=== PATIENT | male | born 1970 | race Caucasian/White ===

== ENCOUNTER 2017-08-07 11:17 | Inpatient (IN) | payer OTHER ==
[2017-08-25 13:04] VITALS: BMI 32.2
[2017-08-28 14:17] LABS: URINE APPEARANCE CLEAR; URINE BILIRUBIN NEGATIVE (<2.0 mg/dL); URINE COLOR LTYELLOW; URINE GLUCOSE (UA) NEGATIVE (NEGATIVE); URINE KETONE NEGATIVE (NEGATIVE); URINE LEUK ESTERASE NEGATIVE (NEGATIVE); URINE NITRITE NEGATIVE (NEGATIVE); URINE PROTEIN NEGATIVE (NEGATIVE); URINE UROBILINOGEN NEGATIVE mg/dL (0.2-1.0)
[2017-08-28 14:42] LABS: URINE BACTERIA RARE /hpf (NONE SEEN); URINE MUCUS RARE
[2017-08-28] MEDS ORDERED: HEPARIN NA (PORCINE) 5,000 UNITS/ML 1ML VIAL ONE (16:23)
[2017-08-28] MEDS ORDERED: THROMBIN (BOVINE) 5,000 UNIT VIAL TP ONE ×2 (16:24→20:20)
[2017-08-28] MEDS ORDERED: MIDAZOLAM HCL 2 MG/2 ML SINGLE DOSE VIAL ONE (19:04)
[2017-08-28] MEDS ORDERED: LIDOCAINE HCL/PF 2% SDV 5ML VIAL ONE (19:20)
[2017-08-28] MEDS ORDERED: fentaNYL CITRATE 250 MCG/5 ML VIAL ONE (19:20)
[2017-08-28] MEDS ORDERED: PROPOFOL 20 ML ONE ×15 (19:20→22:11)
[2017-08-28] MEDS ORDERED: DEXAMETHASONE SOD PHOSPHATE 4 MG/1 ML VIAL ONE ×2 (19:20→22:59)
[2017-08-28] MEDS ORDERED: VANCOMYCIN 1,000 MG VIAL (RESTRICTED TO ID ONLY) ONE (19:22)
[2017-08-28] MEDS ORDERED: ceFAZolin SODIUM 1 GM VIAL ONE (19:22)
[2017-08-28] MEDS ORDERED: ceFAZolin SODIUM 1 GM VIAL IVPB ONE (19:30)
[2017-08-28] MEDS ORDERED: VANCOMYCIN 1,000 MG VIAL (RESTRICTED TO ID ONLY) IVPB ONE (19:41)
[2017-08-28] MEDS ORDERED: TRANEXAMIC ACID 1000 MG/10 ML VIAL ONE ×2 (19:41→21:11)
[2017-08-28] MEDS ORDERED: ROCURONIUM BROMIDE 50 MG/5 ML VIAL ONE (20:06)
[2017-08-28] MEDS ORDERED: GELATIN, ABSORBABLE 100 EACH SPONGE TP ONE (20:20)
[2017-08-28] MEDS ORDERED: HEPARIN NA (PORCINE) 5,000 UNITS/ML 1ML VIAL SQ ONE (20:47)
--- NOTE | 2017-08-28 23:12 | OP ---
Operative Note - Note: Operative Date: 08/28/17 Pre-Operative Diagnosis: 1. Recess spinal stenosis. 2. Lumbar spondylolysis. 3. Spina bifida occulta Operation: 1. L3-S1 laminectomies. 2. L5 Hinson laminectomy. 3. L3-4, L4-5 PLIF. 4. L3-S1 PISF. 5. Bone autograft. 6. Bone allograft Post-Operative Diagnosis: Same as Pre-op Surgeon: Lenny Park Liability Analyst: Anthony Park Anesthesiologist/DETASSELING CREW SUPERVISOR: Edwin Christensen Anesthesia: General Specimens Removed: L3-4, L4-5 disk Estimated Blood Loss (mls): 1,300 Blood Volume Replaced (mls): 625 (Cell Saver) Fluid Volume Replaced (mls): 3,200 (Crystalloid) Operative Report Dictated: Yes
--- NOTE | 2017-08-28 23:13 | PN ---
Progress Note (short form) - Note Progress Note: 47M s/p L3-S1 laminectomies, L5 Hinson laminectomy, L3-4, L4-5 PLIF, L3-S1 PISF POD #0. -Admit to ICU post-op. -Pain control: per anaesthesia team. -q4h B/L LE NV checks. -DVT PPx: - Mechanical only: ANGELIQUE's, SCD's. -Incentive spirometry. -PT/OT/Rehab, OOB. -WBAT B/L LE. -Post-op antibiotics x 2 doses. -NPO until flatus. -d/c Machado catheter when ambulating. -Care per medical hospitalist team. -Discharge planning. -Will follow. Lenny Park MD (Orthopaedic Surgery).
[2017-08-28] MEDS ORDERED: ONDANSETRON 4 MG/2 ML VIAL IVPUSH PRN (23:15)
[2017-08-28] MEDS ORDERED: diazePAM CARPU-JECT 10 MG/2 ML DISP.SYRIN IVPUSH PRN (23:15)
[2017-08-28] MEDS ORDERED: PROMETHAZINE HCL 25 MG/1 ML VIAL IVPB PRN (23:37)
[2017-08-28] MEDS ORDERED: DEXAMETHASONE SOD PHOSPHATE 4 MG/1 ML VIAL IVPUSH ONE (23:45)
[2017-08-28] MEDS ORDERED: HYDROmorphone *PCA* 10MG/50ML DISP.SYRIN PCA SCH (23:45)
[2017-08-28] MEDS ORDERED: ACETAMINOPHEN INJECTION 100 ML IVPB ONE (23:54)
[2017-08-28] MEDS: ACETAMINOPHEN 1000 MG/100 ML VIAL (NON FORMULARY) IVPB SCH (23:55)
[2017-08-29] MEDS: LACTATED RINGERS SOLUTION 1,000 ML IV SCH ×4 (01:00→18:05)
[2017-08-29] MEDS ORDERED: morphine SULFATE 4 MG/ML VIAL ONE (02:40)
[2017-08-29] MEDS: ceFAZolin 2 GRAM PREMIX BAG IVPB SCH ×2 (02:41→10:38)
[2017-08-29] MEDS: KETOROLAC TROMETHAMINE 30 MG/1 ML VIAL IVPB SCH ×3 (02:48→18:00)
[2017-08-29] MEDS: morphine SULFATE 4 MG/ML VIAL IVPUSH PRN ×3 (02:49→21:09)
--- NOTE | 2017-08-29 03:27 | OP ---
DATE OF OPERATION: 08/28/2017 SURGEON: Lenny Park MD SPRING WINDER: Anthony Park MD PREOPERATIVE DIAGNOSIS: Recent spinal stenosis of the lumbar spine L3, L4, L5, S1 with segmental instability. POSTOPERATIVE DIAGNOSIS: Spondylolysis, spina bifida occulta, spinal stenosis L3, L4, L5, S1 and associated segmental instability. ANESTHESIA: General. ANTIBIOTICS: Given 2 g of Kefzol and 1 g of vancomycin. Tranexamic acid provided x2 doses. OPERATION PERFORMED: 1. Hinson laminectomy of L3, L4, L5. 2. Posterior lumbar antibody fusion L3-L4, L4-L5 (TETRAfuse). 3. Pedicle screw instrumentation L3, L4, L5, S1. 4. Posterolateral arthrodesis L3, L4, L5, S1. 5. Malone-Tolliver osteotomy L3. 6. Bone marrow aspirate concentrate with autologous bone graft. 7. Use of biplane fluoroscopy and intraoperative neural monitoring. 8. Complex wound closure 25 cm. INDICATIONS: Patient had failed all conservative treatment for initial left- sided L5-S1 radiculopathy, which converted to intractable segmental instability and patterned low backache with all conservative treatment having failed. OPERATION DETAILS: The patient was correctly identified, brought to the operating room. Lumbar spine was prepped and window draped with routine betadine scrub solution, wiped off with alcohol. DuraPrep applied. Imaging was available for intraoperative evaluation. Timeout was called. Midline incision utilized after evaluation of the skin incision with the lateral fluoroscopic x-ray. Dissection was taken to the tip of the spinous processes of L2 right down to the spinous processes of S1. A subperiosteal dissection was performed, stripping the soft tissues off of the spinous processes of the lamina out to the tip of the transverse processes of L3, L4, L5, S1. The ala of the sacrum was clearly visualized and stripped of all soft tissue. At that point, verification of levels was once again performed with lateral fluoroscopic x-ray. It was then clearly noted the marked looseness of L5 and there was a spina bifida occulta in situ. This was a classical spondylolysis with spina bifida occulta and entrapment of the L4, L5, S1 nerve roots in this massive fibrocartilaginous material in the spondylolysis site. From the right-hand side , the discs of L3-L4 and L4-L5, which as per MRI revealed Modic level 4 changes at each level with disc degeneration. Each disc was resected using an annulotomy being performed on the annulus. It must be noted the dura was retracted from right to left. All epidural veins were dealt with bipolar Bovie set at 15 milliamps. The edgar were inserted and the shaving was to a size 9 at each disc, being treated exactly the same way. Serrated curettes verified all soft tissue of the end plates at each disc was packed with autologous bone graft that was harvested from the posterior elements and milled in a [employer] mill, packed into the antibody space and then followed with a TETRAfuse size 10, 5-degree lordotic cage. These measured 10 x 22 mm cages. Each cage was packed with bone graft. Verification of the cage on x-ray revealed anterior of each cage as planned. This restored the lumbar lordosis. The pedicles of L3, L4, and S1 were identified. We also identified L5, but it was impossible to place an L5 screw because of the kissing nature of the L4 and S1 screws due to the spondylolysis in this situation. Each pedicle was drilled with a 4.5 drill bit and palpated with a ball tipped feeler. Screws were 40 x 6.5. Each screw was tested with intraoperative neuromonitoring and found to be completely safe. Verification of screw seating was made with lateral fluoroscopic x-ray performed. The rods were contoured to the screw heads, fixed with appropriate caps, torque device locking the screws into the emil situation. At that point, the muscles which were dissected off of the transverse process were gently retracted and the interspinous space was packed with a combination of autologous bone and expanded with allograft bone, mixed in CD34 cells, which was bone marrow aspirate concentrate cells harvested from the left posterior ilium by a Jamshidi needle; 120 mL of marrow removed. Only 3-5 mL of marrow concentrate received. This was packed with the graft. A small, tiny, unusual defect in the dura encountered. I was not sure what this was from. It could have been from a retractor, but the leakage of CSF was minimal at the time that we noted it. Then, we prepared to repair this, but it must be clearly noted that the dura appeared to be friable. Suturing the dura would have caused a problem of holes where the suture sites were placed, which could have become more problematic than the actual problem. Fibrin glue with Surgicel was laid on top of the dura. Prior to doing this, the dura was tested on 2 separate occasions with sustained 40 mmHg pressure applied by the Valsalva maneuver by the anesthesia team, raising intrathoracic pressure appropriately. This was sustained. No leakage was encountered. One CrossLink was applied to the construct. I will comment no complications. The operation went extremely well excepting for. Blood loss: 1300 mL of blood were lost. The patient received 625 CellSaver and was given crystalloid fluid as well in the form of 3200 mL. The wounds were closed as follows: Muscle 1 Vicryl, fascia 1 Vicryl, subcutaneous 1 and 2-0 Vicryl, skin jaymie. No drains utilized. This completed a complex wound closure of 25 cm. OVERALL COMMENT: The patient's operation went well. No complications. MD PONCHO Centeno/[id number] MTDD
[2017-08-29 06:12] LABS: HEMATOCRIT 43.7 % (35.4-49); HEMOGLOBIN 14.9 GM/dL (11.7-16.9); MCH 30.7 pg (25.7-33.7); MCHC 34.1 g/dl (32.0-35.9); MEAN CELL VOLUME 90.1 fl (80-96); PLATELET COUNT 379 K/MM3 (134-434); RBC 4.85 M/mm3 (4.00-5.60); RDW 14.2 % (11.9-15.9); WHITE BLOOD COUNT 18.6 K/mm3 (4.0-10.0)
[2017-08-29 06:36] LABS: ANION GAP 6 (8-16); BLOOD UREA NITROGEN 11 mg/dL (7-18); CALCIUM 8.3 mg/dL (8.5-10.1); CHLORIDE 105 mmol/L (98-107); CO2 27 mmol/L (21-32); CREATININE 0.7 mg/dL (0.7-1.3); GLUCOSE,RANDOM 117 mg/dL (74-106); POTASSIUM 4.1 mmol/L (3.5-5.1); SODIUM 138 mmol/L (136-145)
[2017-08-29] MEDS: ACETAMINOPHEN 1000 MG/100 ML VIAL (NON FORMULARY) IVPB SCH ×2 (07:44→14:38)
--- NOTE | 2017-08-29 08:35 | PN ---
Progress Note, Physician Chief Complaint: Pt has pain controlled with addition of tylenol and toradol. No GA complaints. - Current Medication List Current Medications: Active Medications Acetaminophen (Ofirmev Injection -) 1,000 mg IVPB Q8H [facility] Stop: 08/29/17 15:16 Last Admin: 08/29/17 07:44 Dose: 1,000 mg Cefazolin Sodium/Dextrose (Ancef 2 Gm Premixed Ivpb -) 2 gm IVPB Q8H [facility] Stop: 08/29/17 11:01 Last Admin: 08/29/17 02:41 Dose: 2 gm Diazepam (Valium Injection -) 5 mg IVPUSH Q6H PRN PRN Reason: MUSCLE SPASMS Hydromorphone HCl (Dilaudid Tearoom Host -) 0 mg FURNITURE MAKER FURNITURE MAKER [facility]; Protocol Stop: 09/04/17 23:37 Last Admin: 08/28/17 23:45 Dose: 10 mg Lactated Ringer's (Lactated Ringers Solution) 1,000 mls @ 125 mls/hr IV ASDIR [facility] Last Admin: 08/29/17 04:09 Dose: Not Given Ketorolac Tromethamine (Toradol Injection -) 30 mg IVPB Q8H [facility] Stop: 08/30/17 02:46 Last Admin: 08/29/17 02:48 Dose: 30 mg Morphine Sulfate (Morphine Sulfate) 4 mg IVPUSH Q3H PRN PRN Reason: PAIN LEVEL 7 - 10 Last Admin: 08/29/17 05:37 Dose: 4 mg Non-Formulary Medication (Naloxegol Oxalate [Movantik]) 25 mg PO DAILY [facility] Ondansetron HCl (Zofran Injection) 4 mg IVPUSH Q6H PRN PRN Reason: NAUSEA AND/OR VOMITING Promethazine HCl (Phenergan Injection -) 12.5 mg IVPB Q6H PRN PRN Reason: NAUSEA AND/OR VOMITING - Objective Vital Signs: Vital Signs Temperature 98.4 F 08/29/17 06:43 Pulse Rate 60 08/29/17 08:04 Respiratory Rate 21 08/29/17 08:04 Blood Pressure 159/88 08/29/17 08:04 O2 Sat by Pulse Oximetry (%) 100 08/29/17 02:30 Constitutional: Yes: Well Nourished, No Distress, Calm Neurological: Yes: WNL, Alert, Oriented Labs: CBC, BMP 06/12/18 06:00 08/29/17 06:00 Assessment/Plan POD#1 s/p L3-S1 decompression, instrumentation with fusion under GA. Dilaudid FURNITURE MAKER for pain control. Doing well with current regimen, Cont FURNITURE MAKER
[2017-08-29] MEDS ORDERED: BISACODYL 10 MG SUPP.RECT PR PRN (08:41)
--- NOTE | 2017-08-29 08:42 | PN ---
Physical Exam: SUBJECTIVE: Patient seen and examined at bedside. Walked with PT this morning. Complaining of 10/10 pain after PT. OBJECTIVE: Vital Signs Period Temp Pulse Resp BP Sys/Naylor Pulse Ox Last 24 Hr 98 F-98.9 F 59-76 15-26 140-159/68-99 98-100 GENERAL: The patient is awake, alert, and fully oriented, in no acute distress. LUNGS: Mild end expiratory wheezing HEART: Regular rate and rhythm, S1, S2 ABDOMEN: Soft, nontender, nondistended EXTREMITIES: 2+ pulses, warm, well-perfused, no edema. NEUROLOGICAL: Cranial nerves II through XII grossly intact. Normal speech Laboratory Results - last 24 hr 08/28/17 08/28/17 08/28/17 14:01 14:01 14:40 WBC RBC Hgb Hct MCV MCH MCHC RDW Plt Count MPV Sodium Potassium Chloride Carbon Dioxide Anion Gap BUN Creatinine Random Glucose Calcium Urine Color Ltyellow Urine Appearance Clear Urine pH 6.0 Ur Specific [place] 1.005 Urine Protein Negative Urine Glucose (UA) Negative Urine Ketones Negative Urine Blood 1+ H Urine Nitrite Negative Urine Bilirubin Negative Urine Urobilinogen Negative Ur Leukocyte Esterase Negative Urine WBC (Auto) <1 Urine RBC (Auto) 1 Urine Bacteria Rare Urine Mucus Rare Blood Type O POSITIVE O POSITIVE Antibody Screen Negative 08/29/17 08/29/17 06:00 06:00 WBC 18.6 H RBC 4.85 Hgb 14.9 Hct 43.7 MCV 90.1 MCH 30.7 MCHC 34.1 RDW 14.2 Plt Count 379 MPV 7.0 L Sodium 138 Potassium 4.1 Chloride 105 Carbon Dioxide 27 Anion Gap 6 L BUN 11 Creatinine 0.7 Random Glucose 117 H Calcium 8.3 L Urine Color Urine Appearance Urine pH Ur Specific [place] Urine Protein Urine Glucose (UA) Urine Ketones Urine Blood Urine Nitrite Urine Bilirubin Urine Urobilinogen Ur Leukocyte Esterase Urine WBC (Auto) Urine RBC (Auto) Urine Bacteria Urine Mucus Blood Type Antibody Screen Active Medications Generic Name Dose Route Start Last Admin Trade Name Freq PRN Reason Stop Dose Admin Acetaminophen 1,000 mg 08/28/17 23:15 08/29/17 07:44 Ofirmev Injection - IVPB 08/29/17 15:16 1,000 mg Q8H TIM Administration Cefazolin Sodium/Dextrose 2 gm 08/29/17 03:00 08/29/17 02:41 Ancef 2 Gm Premixed Ivpb - IVPB 08/29/17 11:01 2 gm Q8H TIM Administration Diazepam 5 mg 08/28/17 23:15 Valium Injection - IVPUSH Q6H PRN MUSCLE SPASMS Docusate Sodium 100 mg 08/29/17 14:00 Colace - PO TID [facility] Hydromorphone HCl 0 mg 08/28/17 23:45 08/28/17 23:45 Dilaudid Bone Process Operator - PROOF OPERATOR 09/04/17 23:37 10 mg PROOF OPERATOR TIM Administration Protocol Lactated Ringer's 1,000 mls @ 125 mls/hr 08/28/17 23:15 08/29/17 04:09 Lactated Ringers Solution IV Not Given ASDIR [facility] Ketorolac Tromethamine 30 mg 08/29/17 02:45 08/29/17 02:48 Toradol Injection - IVPB 08/30/17 02:46 30 mg Q8H TIM Administration Morphine Sulfate 4 mg 08/29/17 02:44 08/29/17 05:37 Morphine Sulfate IVPUSH 4 mg Q3H PRN Administration PAIN LEVEL 7 - 10 Non-Formulary Medication 25 mg 08/29/17 10:00 Naloxegol Oxalate [Movantik] PO DAILY [facility] Ondansetron HCl 4 mg 08/28/17 23:15 Zofran Injection IVPUSH Q6H PRN NAUSEA AND/OR VOMITING Polyethylene Glycol 17 gm 08/29/17 10:00 Miralax (For Daily Use) - PO BID [facility] Promethazine HCl 12.5 mg 08/28/17 23:37 Phenergan Injection - IVPB Q6H PRN NAUSEA AND/OR VOMITING ASSESSMENT/PLAN: 47 year-old male with a PMH significant for COPD, active smoker, and recess spinal stenosis, lumbar spondylolysis, spina bifida occulta. Recess spinal stenosis, lumbar spondylolysis, spina bifida occulta s/p L3-S1 laminectomies, L5 Hinson laminectomy, L3-L4, L4-L5 PLIF, L3-S1 PISF, bone autograft, bone allograft 08/28/17 --POD #1 --perioperative antibiotics per surgery --pain management per anesthesia --bowel regimen started --IS --d/c jones COPD --was told as part of pre-op workup he has COPD --mild end expiratory wheeze --duonebs TID FEN Fluids: LR @ 125mL/hr Electrolytes: replete as indicated Nutrition: NPO until flatus DVT prophylaxis: mechanical only; SCDs, TEDs Dispo: continues to require ICU level care. Full code. Visit type - Emergency Visit Emergency Visit: Yes ED Registration Date: 08/28/17 Care time: The patient presented to the Emergency Department on the above date and was hospitalized for further evaluation of their emergent condition. - New Patient This patient is new to me today: Yes Date on this admission: 08/29/17 - Critical Care Critical Care patient: No Total Critical Care Time (in minutes): 35 Critical Care Statement: The care of this patient involved high complexity decision making to prevent further life threatening deterioration of the patient 's condition and/or to evaluate & treat vital organ system(s) failure or risk of failure.
[2017-08-29] MEDS ORDERED: BISACODYL 10 MG SUPP.RECT RC PRN (09:04)
[2017-08-29] MEDS ORDERED: POLYETHYLENE GLYCOL 3350 119 GM BTL PO SCH (10:00)
--- NOTE | 2017-08-29 11:43 | PN ---
Teaching Attending Note Name of Resident: Larry Nicholson ATTENDING PHYSICIAN STATEMENT I saw and evaluated the patient. I reviewed the resident's note and discussed the case with the resident. I agree with the resident's findings and plan as documented. SUBJECTIVE: Pt seen and examined in the ICU. Briefly, 47yo male with h/o spinal stenosis who underwent elective L3-S1 laminectomies/L3-L4, L4-L5 PLIF/L3-S1 PISF. EBL 1300mL. 625mL cell saver returned, received 3200mL crystalloid. Seen post op day 1, hungry. States pain controlled. No nausea. Denies shortness of breath or chest pain. Wants to eat. OBJECTIVE: Vital Signs Period Temp Pulse Resp BP Sys/Naylor Pulse Ox Last 24 Hr 98 F-98.9 F 58-76 15-26 113-159/68-99 97-100 Intake & Output 08/26/17 08/27/17 08/28/17 08/29/17 23:59 23:59 23:59 23:59 Intake Total 4425 1000 Output Total 600 1500 Balance 3825 -500 Gen: NAD at rest but easily agitated Heart: RRR Lung: decreased breath sounds at the bases Abd: soft, nontender Ext: no edema CBC, BMP 08/29/17 06:00 08/29/17 06:00 Active Medications Acetaminophen (Ofirmev Injection -) 1,000 mg IVPB Q8H [facility] Stop: 08/29/17 15:16 Last Admin: 08/29/17 07:44 Dose: 1,000 mg Bisacodyl (Dulcolax Suppository -) 10 mg RC PRN PRN PRN Reason: CONSTIPATION Diazepam (Valium Injection -) 5 mg IVPUSH Q6H PRN PRN Reason: MUSCLE SPASMS Hydromorphone HCl (Dilaudid Manager Data Warehousing -) 0 mg CARDIAC EXERCISE PHYSIOLOGIST CARDIAC EXERCISE PHYSIOLOGIST TIM; Protocol Stop: 09/04/17 23:37 Last Admin: 08/28/17 23:45 Dose: 10 mg Lactated Ringer's (Lactated Ringers Solution) 1,000 mls @ 125 mls/hr IV ASDIR TIM Last Admin: 08/29/17 04:09 Dose: Not Given Ketorolac Tromethamine (Toradol Injection -) 30 mg IVPB Q8H [facility] Stop: 08/30/17 02:46 Last Admin: 08/29/17 10:23 Dose: 30 mg Morphine Sulfate (Morphine Sulfate) 4 mg IVPUSH Q3H PRN PRN Reason: PAIN LEVEL 7 - 10 Last Admin: 08/29/17 05:37 Dose: 4 mg Non-Formulary Medication (Naloxegol Oxalate [Movantik]) 25 mg PO DAILY TIM Ondansetron HCl (Zofran Injection) 4 mg IVPUSH Q6H PRN PRN Reason: NAUSEA AND/OR VOMITING Promethazine HCl (Phenergan Injection -) 12.5 mg IVPB Q6H PRN PRN Reason: NAUSEA AND/OR VOMITING ASSESSMENT AND PLAN: Spinal Stenosis Lumbar Spondylolysis s/p L3-S1 laminectomies/L3-L4, L4-L5 PLIF/L3-S1 PISF - pain control - incentive spirometry - IVF - d/c jones when out of bed - PO/activity/DVT prophylaxis/disposition per surgery
--- NOTE | 2017-08-29 12:05 | CONSULT ---
Consultation: CONSULT REQUEST: We have been asked to medically evaluate this patient for ( specify). HISTORY OF PRESENT ILLNESS: Patient is a 47 yo M with no PMHx, POD #1 for elective L3-S1 laminectomies/L3-L4, L4-L5 PLIF/L3-S1 PISF. Patient offers no complaints. Says the pain is controlled with his medications. Denies sob, dizziness, chest pain, cough, dysuria. Has not passed flatus or had a bowel movement. Patient wants to eat, complaining about hunger. REVIEW OF SYSTEMS: CONSTITUTIONAL: Absent: fever, chills, diaphoresis, generalized weakness, malaise, loss of appetite, weight change HEENT: Absent: rhinorrhea, nasal congestion, throat pain, throat swelling, difficulty swallowing, mouth swelling, ear pain, eye pain, visual changes CARDIOVASCULAR: Absent: chest pain, syncope, palpitations, irregular heart rate, lightheadedness , peripheral edema RESPIRATORY: Absent: cough, shortness of breath, dyspnea with exertion, orthopnea, wheezing, stridor, hemoptysis GASTROINTESTINAL: Absent: abdominal pain, abdominal distension, nausea, vomiting, diarrhea, constipation, melena, hematochezia GENITOURINARY: Absent: dysuria, frequency, urgency, hesitancy, hematuria, flank pain, genital pain MUSCULOSKELETAL: Absent: myalgia, arthralgia, joint swelling, back pain, neck pain SKIN: Absent: rash, itching, pallor HEMATOLOGIC/IMMUNOLOGIC: Absent: easy bleeding, easy bruising, lymphadenopathy, frequent infections ENDOCRINE: Absent: unexplained weight gain, unexplained weight loss, heat intolerance, cold intolerance NEUROLOGIC: Absent: headache, focal weakness or paresthesias, dizziness, unsteady gait, seizure, mental status changes, bladder or bowel incontinence PSYCHIATRIC: Absent: anxiety, depression, suicidal or homicidal ideation, hallucinations. PHYSICAL EXAMINATION Vital Signs - 24 hr 08/28/17 08/28/17 08/28/17 14:38 14:53 23:25 Temperature 98.7 F 98.2 F Pulse Rate 74 76 Respiratory 18 18 Rate Blood Pressure 143/84 140/72 O2 Sat by Pulse 98 98 Oximetry (%) 08/28/17 08/28/17 08/29/17 23:30 23:45 00:00 Temperature Pulse Rate 60 65 63 Respiratory 20 26 H 21 Rate Blood Pressure 142/70 141/77 147/80 O2 Sat by Pulse 100 100 100 Oximetry (%) 08/29/17 08/29/17 08/29/17 00:15 00:30 00:45 Temperature Pulse Rate 65 75 67 Respiratory 15 17 25 H Rate Blood Pressure 150/68 158/69 147/80 O2 Sat by Pulse 100 100 100 Oximetry (%) 08/29/17 08/29/17 08/29/17 01:00 01:15 01:30 Temperature 98.2 F Pulse Rate 71 68 68 Respiratory 20 18 18 Rate Blood Pressure 148/80 150/69 148/88 O2 Sat by Pulse 100 100 Oximetry (%) 08/29/17 08/29/17 08/29/17 01:53 01:58 02:00 Temperature 98 F 98.7 F Pulse Rate 61 60 Respiratory 19 19 20 Rate Blood Pressure 159/99 140/70 O2 Sat by Pulse 100 98 Oximetry (%) 08/29/17 08/29/17 08/29/17 02:15 02:30 02:45 Temperature 98.9 F Pulse Rate 64 74 64 Respiratory 20 20 20 Rate Blood Pressure 140/70 150/80 140/70 O2 Sat by Pulse 100 Oximetry (%) 08/29/17 08/29/17 08/29/17 03:15 03:45 04:15 Temperature Pulse Rate 64 64 64 Respiratory 20 20 20 Rate Blood Pressure 150/70 150/70 149/78 O2 Sat by Pulse Oximetry (%) 08/29/17 08/29/17 08/29/17 04:45 05:15 05:45 Temperature Pulse Rate 64 60 60 Respiratory 20 20 20 Rate Blood Pressure 149/78 150/70 150/70 O2 Sat by Pulse Oximetry (%) 08/29/17 08/29/17 08/29/17 06:15 06:43 06:45 Temperature 98.4 F Pulse Rate 60 60 60 Respiratory 20 20 20 Rate Blood Pressure 150/70 152/86 150/70 O2 Sat by Pulse Oximetry (%) 08/29/17 08/29/17 08/29/17 07:15 08:04 09:00 Temperature Pulse Rate 59 L 60 Respiratory 20 19 Rate Blood Pressure 113/99 159/88 O2 Sat by Pulse 97 Oximetry (%) 08/29/17 08/29/17 10:00 10:15 Temperature 98.4 F Pulse Rate 58 L 64 Respiratory 20 20 Rate Blood Pressure 158/81 158/81 O2 Sat by Pulse Oximetry (%) GENERAL: in NAD, but easily agitated. comfortable in bed EYES: Pupils equal, round and reactive to light, extraocular movements intact, sclera anicteric, conjunctiva clear. EARS, NOSE, THROAT: oropharynx clear without exudates. Moist mucous membranes. NECK: supple without lymphadenopathy, JVD LUNGS: Breath sounds equal, clear to auscultation bilaterally. No wheezes, and no crackles HEART: Regular rate and rhythm, normal S1 and S2 without murmur, rub or gallop. ABDOMEN: Soft, nontender, not distended, normoactive bowel sounds, MUSCULOSKELETAL: Normal range of motion at all joints. UPPER EXTREMITIES: 2+ pulses, warm, well-perfused. LOWER EXTREMITIES: 2+ pulses, No peripheral edema. NEUROLOGICAL: Cranial nerves II-XII intact. Normal speech. Normal gait. Laboratory Results - last 24 hr 08/28/17 08/28/17 08/28/17 14:01 14:01 14:40 WBC RBC Hgb Hct MCV MCH MCHC RDW Plt Count MPV Sodium Potassium Chloride Carbon Dioxide Anion Gap BUN Creatinine Random Glucose Calcium Urine Color Ltyellow Urine Appearance Clear Urine pH 6.0 Ur Specific [place] 1.005 Urine Protein Negative Urine Glucose (UA) Negative Urine Ketones Negative Urine Blood 1+ H Urine Nitrite Negative Urine Bilirubin Negative Urine Urobilinogen Negative Ur Leukocyte Esterase Negative Urine WBC (Auto) <1 Urine RBC (Auto) 1 Urine Bacteria Rare Urine Mucus Rare Blood Type O POSITIVE O POSITIVE Antibody Screen Negative 08/29/17 08/29/17 06:00 06:00 WBC 18.6 H RBC 4.85 Hgb 14.9 Hct 43.7 MCV 90.1 MCH 30.7 MCHC 34.1 RDW 14.2 Plt Count 379 MPV 7.0 L Sodium 138 Potassium 4.1 Chloride 105 Carbon Dioxide 27 Anion Gap 6 L BUN 11 Creatinine 0.7 Random Glucose 117 H Calcium 8.3 L Urine Color Urine Appearance Urine pH Ur Specific [place] Urine Protein Urine Glucose (UA) Urine Ketones Urine Blood Urine Nitrite Urine Bilirubin Urine Urobilinogen Ur Leukocyte Esterase Urine WBC (Auto) Urine RBC (Auto) Urine Bacteria Urine Mucus Blood Type Antibody Screen Active Medications Generic Name Dose Route Start Last Admin Trade Name Freq PRN Reason Stop Dose Admin Acetaminophen 1,000 mg 08/28/17 23:15 08/29/17 07:44 Ofirmev Injection - IVPB 08/29/17 15:16 1,000 mg Q8H TIM Administration Bisacodyl 10 mg 08/29/17 09:04 Dulcolax Suppository - RC PRN PRN CONSTIPATION Diazepam 5 mg 08/28/17 23:15 Valium Injection - IVPUSH Q6H PRN MUSCLE SPASMS Hydromorphone HCl 0 mg 08/28/17 23:45 08/28/17 23:45 Dilaudid Deputy County Counsel - COMMERCIAL SALES REPRESENTATIVE 09/04/17 23:37 10 mg COMMERCIAL SALES REPRESENTATIVE TIM Administration Protocol Lactated Ringer's 1,000 mls @ 125 mls/hr 08/28/17 23:15 08/29/17 04:09 Lactated Ringers Solution IV Not Given ASDIR [facility] Ketorolac Tromethamine 30 mg 08/29/17 02:45 08/29/17 10:23 Toradol Injection - IVPB 08/30/17 02:46 30 mg Q8H TIM Administration Morphine Sulfate 4 mg 08/29/17 02:44 08/29/17 05:37 Morphine Sulfate IVPUSH 4 mg Q3H PRN Administration PAIN LEVEL 7 - 10 Non-Formulary Medication 25 mg 08/29/17 10:00 Naloxegol Oxalate [Movantik] PO DAILY [facility] Ondansetron HCl 4 mg 08/28/17 23:15 Zofran Injection IVPUSH Q6H PRN NAUSEA AND/OR VOMITING Promethazine HCl 12.5 mg 08/28/17 23:37 Phenergan Injection - IVPB Q6H PRN NAUSEA AND/OR VOMITING ASSESSMENT/PLAN: #s/p L3-S1 laminectomies/L3-L4, L4-L5 PLIF/L3-S1 PISF -Pain control with COMMERCIAL SALES REPRESENTATIVE pump-Dilaudid -incentive spirometry -IV fluids with LR @125 -PT -d/c jones when ambulating -Post-op antibiotics x 2 doses. -NPO until flatus. -d/c Jones catheter when ambulating. #FEN -LR @ 125ml/hour -monitor lytes -NPO #DVT -SCD's Dispo: We will continue to follow the patient. Thank you for this consultative opportunity. Visit type - Emergency Visit Emergency Visit: Yes ED Registration Date: 08/28/17 Care time: The patient presented to the Emergency Department on the above date and was hospitalized for further evaluation of their emergent condition. - New Patient This patient is new to me today: Yes Date on this admission: 08/29/17 - Critical Care Critical Care patient: Yes Total Critical Care Time (in minutes): 40 Critical Care Statement: The care of this patient involved high complexity decision making to prevent further life threatening deterioration of the patient 's condition and/or to evaluate & treat vital organ system(s) failure or risk of failure.
[2017-08-29] MEDS ORDERED: DOCUSATE SODIUM 100 MG CAPSULE (FP) PO SCH (14:00)
[2017-08-29] MEDS ORDERED: NICOTINE POLACRILEX 2 MG GUM BUC PRN (15:07)
[2017-08-29] MEDS: ALBUTEROL SO4 2.5/IPRATROPIUM 0.5 INH SOL 3 ML VIAL.NEB. NEB SCH ×2 (16:00→21:10)
[2017-08-29] MEDS: HYDROmorphone *PCA* 10MG/50ML DISP.SYRIN PCA SCH (18:22)
[2017-08-29] MEDS ORDERED: POLYETHYLENE GLYCOL 3350 119 GM BTL PO PRN (19:52)
[2017-08-30] MEDS: morphine SULFATE 4 MG/ML VIAL IVPUSH PRN ×6 (00:10→21:56)
[2017-08-30] MEDS: KETOROLAC TROMETHAMINE 30 MG/1 ML VIAL IVPB SCH (03:17)
[2017-08-30] MEDS ORDERED: PT OWN MED DRAWER 7, Y5N ONE (03:21)
[2017-08-30 06:12] LABS: HEMATOCRIT 36.7 % (35.4-49); HEMOGLOBIN 12.7 GM/dL (11.7-16.9); MCHC 34.6 g/dl (32.0-35.9); MEAN CELL VOLUME 89.5 fl (80-96); MEAN PLT VOLUME 7.2 fl (7.5-11.1); PLATELET COUNT 323 K/MM3 (134-434); RDW 14.2 % (11.9-15.9); WHITE BLOOD COUNT 13.5 K/mm3 (4.0-10.0)
[2017-08-30 06:45] LABS: ALBUMIN 3.1 g/dl (3.4-5.0); ANION GAP 9 (8-16); BLOOD UREA NITROGEN 8 mg/dL (7-18); CHLORIDE 101 mmol/L (98-107); CO2 28 mmol/L (21-32); CREATININE 0.6 mg/dL (0.7-1.3); GLUCOSE,RANDOM 96 mg/dL (74-106); MAGNESIUM 2.1 mg/dL (1.8-2.4); POTASSIUM 3.7 mmol/L (3.5-5.1); SGOT/AST 81 U/L (15-37); SGPT/ALT 44 U/L (12-78); SODIUM 138 mmol/L (136-145)
[2017-08-30 06:47] LABS: ALK PHOS 55 U/L (45-117); BILIRUBIN,TOTAL 0.7 mg/dL (0.2-1.0)
[2017-08-30] MEDS ORDERED: HYDROmorphone HCL CARPU-JECT 1 MG/1 ML DISP.SYRIN ONE (07:32)
[2017-08-30] MEDS ORDERED: HYDROmorphone HCL CARPU-JECT 1 MG/1 ML DISP.SYRIN IVPUSH ONE (07:32)
--- NOTE | 2017-08-30 07:57 | PN ---
Physical Exam: SUBJECTIVE: Patient seen and examined. Pain is slightly improved from yesterday. Walked with PT today. OBJECTIVE: Vital Signs Period Temp Pulse Resp BP Sys/Naylor Pulse Ox Last 24 Hr 98.1 F-98.9 F 58-93 16-25 96-180/47-91 97-97 GENERAL: The patient is awake, alert, and fully oriented, in no acute distress. LUNGS: Mild end expiratory wheezing HEART: Regular rate and rhythm, S1, S2 ABDOMEN: Soft, nontender, nondistended MUSCULOSKELETAL: surgicel dressing in place, c/d/i; surrounding area no erythema , swelling EXTREMITIES: 2+ pulses, warm, well-perfused, no edema. NEUROLOGICAL: Cranial nerves II through XII grossly intact. Normal speech Laboratory Results - last 24 hr 08/30/17 08/30/17 05:55 05:55 WBC 13.5 H RBC 4.10 Hgb 12.7 D Hct 36.7 D MCV 89.5 MCH 31.0 MCHC 34.6 RDW 14.2 Plt Count 323 MPV 7.2 L Sodium 138 Potassium 3.7 Chloride 101 Carbon Dioxide 28 Anion Gap 9 BUN 8 D Creatinine 0.6 L Creat Clearance w eGFR > 60 Random Glucose 96 Calcium 8.0 L Magnesium 2.1 Total Bilirubin 0.7 AST 81 H ALT 44 Alkaline Phosphatase 55 Total Protein 6.0 L Albumin 3.1 L Active Medications Generic Name Dose Route Start Last Admin Trade Name Freq PRN Reason Stop Dose Admin Albuterol/Ipratropium 1 amp 08/29/17 16:00 08/29/17 21:10 Duoneb - NEB 1 amp RQID TIM Administration Bisacodyl 10 mg 08/29/17 09:04 Dulcolax Suppository - RC PRN PRN CONSTIPATION Diazepam 5 mg 08/28/17 23:15 Valium Injection - IVPUSH Q6H PRN MUSCLE SPASMS Hydromorphone HCl 10 mg 08/29/17 18:14 08/29/17 18:22 Dilaudid Slat Twister - SPECIAL SYSTEMS TECHNICIAN 09/04/17 23:37 10 mg SPECIAL SYSTEMS TECHNICIAN TIM Administration Protocol Lactated Ringer's 1,000 mls @ 75 mls/hr 08/29/17 15:19 08/29/17 18:05 Lactated Ringers Solution IV 75 mls/hr ASDIR TIM Administration Morphine Sulfate 4 mg 08/29/17 02:44 08/30/17 06:25 Morphine Sulfate IVPUSH 4 mg Q3H PRN Administration PAIN LEVEL 7 - 10 Nicotine Polacrilex 2 mg 08/29/17 15:07 Nicorette Gum - BUC Q2H PRN NICOTINE REPLACEMENT RX Non-Formulary Medication 25 mg 08/29/17 10:00 Naloxegol Oxalate [Movantik] PO DAILY TIM Ondansetron HCl 4 mg 08/28/17 23:15 Zofran Injection IVPUSH Q6H PRN NAUSEA AND/OR VOMITING Polyethylene Glycol 17 gm 08/29/17 19:52 08/29/17 21:13 Miralax (For Daily Use) - PO 17 gm Q24H PRN Administration CONSTIPATION Promethazine HCl 12.5 mg 08/28/17 23:37 Phenergan Injection - IVPB Q6H PRN NAUSEA AND/OR VOMITING ASSESSMENT/PLAN: 47 year-old male with a PMH significant for COPD, active smoker, and recess spinal stenosis, lumbar spondylolysis, spina bifida occulta. Recess spinal stenosis, lumbar spondylolysis, spina bifida occulta s/p L3-S1 laminectomies, L5 Hinson laminectomy, L3-L4, L4-L5 PLIF, L3-S1 PISF, bone autograft, bone allograft 08/28/17 --POD #2 --perioperative antibiotics per surgery --pain management per anesthesia --bowel regimen; patient using home Movantik prescription --IS --voiding freely COPD --was told as part of pre-op workup he has COPD --mild end expiratory wheeze --duonebs TID FEN Fluids: LR @ 75mL/hr Electrolytes: replete as indicated Nutrition: NPO until flatus DVT prophylaxis: mechanical only; SCDs, TEDs Dispo: continues to require inpatient care. Patient expressed interest in going to [place], discussed with case management. Full code. Visit type - Emergency Visit Emergency Visit: Yes ED Registration Date: 08/28/17 Care time: The patient presented to the Emergency Department on the above date and was hospitalized for further evaluation of their emergent condition. - New Patient This patient is new to me today: No - Critical Care Critical Care patient: No
[2017-08-30] MEDS: ALBUTEROL SO4 2.5/IPRATROPIUM 0.5 INH SOL 3 ML VIAL.NEB. NEB SCH ×4 (08:10→21:16)
[2017-08-30] MEDS ORDERED: KETOROLAC TROMETHAMINE 30 MG/1 ML VIAL IVPUSH ONE (08:15)
--- NOTE | 2017-08-30 08:28 | PN ---
Physical Exam: SUBJECTIVE: Patient seen and examined. No acute events overnight. Says he is more uncomfortable and in pain compared to yesterday. Has not had a BM, and minimally passing flatus. Afebrile, sat 100% RA OBJECTIVE: Vital Signs Period Temp Pulse Resp BP Sys/Naylor Pulse Ox Last 24 Hr 98.1 F-98.9 F 58-93 16-25 96-180/47-91 97-97 GENERAL: in NAD, but easily agitated. comfortable in bed EYES: Pupils equal, round and reactive to light, extraocular movements intact EARS, NOSE, THROAT: oropharynx clear without exudates. Moist mucous membranes. NECK: supple without lymphadenopathy, JVD LUNGS: Breath sounds equal, clear to auscultation bilaterally. HEART: Regular rate and rhythm, normal S1 and S2 without murmur, rub or gallop. ABDOMEN: Soft, nontender, not distended, normoactive bowel sounds MUSCULOSKELETAL: Normal range of motion at all joints. UPPER EXTREMITIES: 2+ pulses, warm, well-perfused. LOWER EXTREMITIES: 2+ pulses, No peripheral edema. NEUROLOGICAL: Cranial nerves II-XII intact. Normal speech. Laboratory Results - last 24 hr 08/30/17 08/30/17 05:55 05:55 WBC 13.5 H RBC 4.10 Hgb 12.7 D Hct 36.7 D MCV 89.5 MCH 31.0 MCHC 34.6 RDW 14.2 Plt Count 323 MPV 7.2 L Sodium 138 Potassium 3.7 Chloride 101 Carbon Dioxide 28 Anion Gap 9 BUN 8 D Creatinine 0.6 L Creat Clearance w eGFR > 60 Random Glucose 96 Calcium 8.0 L Magnesium 2.1 Total Bilirubin 0.7 AST 81 H ALT 44 Alkaline Phosphatase 55 Total Protein 6.0 L Albumin 3.1 L Active Medications Generic Name Dose Route Start Last Admin Trade Name Freq PRN Reason Stop Dose Admin Albuterol/Ipratropium 1 amp 08/29/17 16:00 08/29/17 21:10 Duoneb - NEB 1 amp RQID TIM Administration Bisacodyl 10 mg 08/29/17 09:04 Dulcolax Suppository - RC PRN PRN CONSTIPATION Diazepam 5 mg 08/28/17 23:15 Valium Injection - IVPUSH Q6H PRN MUSCLE SPASMS Hydromorphone HCl 10 mg 08/29/17 18:14 06/12/18 18:22 Dilaudid Public Address Systems Mechanic - CLIENT CUSTOMER MANAGER 09/04/17 23:37 10 mg CLIENT CUSTOMER MANAGER TIM Administration Protocol Lactated Ringer's 1,000 mls @ 75 mls/hr 08/29/17 15:19 08/29/17 18:05 Lactated Ringers Solution IV 75 mls/hr ASDIR TIM Administration Morphine Sulfate 4 mg 08/29/17 02:44 08/30/17 06:25 Morphine Sulfate IVPUSH 4 mg Q3H PRN Administration PAIN LEVEL 7 - 10 Nicotine Polacrilex 2 mg 08/29/17 15:07 Nicorette Gum - BUC Q2H PRN NICOTINE REPLACEMENT RX Non-Formulary Medication 25 mg 08/29/17 10:00 Naloxegol Oxalate [Movantik] PO DAILY TIM Ondansetron HCl 4 mg 08/28/17 23:15 Zofran Injection IVPUSH Q6H PRN NAUSEA AND/OR VOMITING Polyethylene Glycol 17 gm 08/29/17 19:52 08/29/17 21:13 Miralax (For Daily Use) - PO 17 gm Q24H PRN Administration CONSTIPATION Promethazine HCl 12.5 mg 08/28/17 23:37 Phenergan Injection - IVPB Q6H PRN NAUSEA AND/OR VOMITING ASSESSMENT/PLAN: #s/p L3-S1 laminectomies/L3-L4, L4-L5 PLIF/L3-S1 PISF -POD #2 -Pain control with CLIENT CUSTOMER MANAGER pump-Dilaudid -incentive spirometry -IV fluids with LR @125 -PT -[place]ado d/c -Dulcolax, Miralax for constipation #COPD -was told as part of pre-op workup he has COPD -duonebs TID #FEN -No fluids, patient eating -monitor lytes -Regular diet #DVT -SCD's Transfer to [facility]-surge Visit type - Emergency Visit Emergency Visit: Yes ED Registration Date: 08/28/17 Care time: The patient presented to the Emergency Department on the above date and was hospitalized for further evaluation of their emergent condition. - New Patient This patient is new to me today: No - Critical Care Critical Care patient: Yes Total Critical Care Time (in minutes): 40 Critical Care Statement: The care of this patient involved high complexity decision making to prevent further life threatening deterioration of the patient 's condition and/or to evaluate & treat vital organ system(s) failure or risk of failure.
--- NOTE | 2017-08-30 08:30 | PN ---
Progress Note (short form) - Note Progress Note: Post op day#2.P 69,Bp 166/61 and Spo2 98% on RA.Patient stable and c/o pain score of 7-8/10 on dilaudid SMOKE AND FLAME SPECIALIST.Will add Neurntin and Ofirmev to it and will f/ u tomorrow.
--- NOTE | 2017-08-30 10:53 | PN ---
Teaching Attending Note Name of Resident: Larry Nicholson ATTENDING PHYSICIAN STATEMENT I saw and evaluated the patient. I reviewed the resident's note and discussed the case with the resident. I agree with the resident's findings and plan as documented. SUBJECTIVE: Pt seen and examined in the ICU. Pain relatively controlled. Some itching with pain meds. Minimal flatus but insisting on eating. OBJECTIVE: Vital Signs Period Temp Pulse Resp BP Sys/Naylor Pulse Ox Last 24 Hr 98.1 F-98.9 F 64-93 16-25 96-180/47-91 97-97 Intake & Output 08/27/17 08/28/17 08/29/17 08/30/17 23:59 23:59 23:59 23:59 Intake Total 4425 2525 1020 Output Total 600 2200 700 Balance 3825 325 320 Weight 92.578 kg Gen: NAD at rest Heart: RRR Lung: decreased breath sounds at the bases Abd: soft, nontender Ext: no edema CBC, BMP 08/30/17 05:55 08/30/17 05:55 Active Medications Acetaminophen (Ofirmev Injection -) 1,000 mg IVPB Q6H PRN PRN Reason: PAIN LEVEL 6-10 Albuterol/Ipratropium (Duoneb -) 1 amp NEB RQID TIM Last Admin: 08/30/17 08:10 Dose: 1 amp Bisacodyl (Dulcolax Suppository -) 10 mg RC PRN PRN PRN Reason: CONSTIPATION Diazepam (Valium Injection -) 5 mg IVPUSH Q6H PRN PRN Reason: MUSCLE SPASMS Gabapentin (Neurontin -) 300 mg PO TID TIM Hydromorphone HCl (Dilaudid Pot Reliner -) 10 mg FINANCIAL REPORTING MANAGER FINANCIAL REPORTING MANAGER [facility]; Protocol Stop: 09/04/17 23:37 Last Admin: 08/29/17 18:22 Dose: 10 mg Lactated Ringer's (Lactated Ringers Solution) 1,000 mls @ 75 mls/hr IV ASDIR TIM Last Admin: 08/29/17 18:05 Dose: 75 mls/hr Morphine Sulfate (Morphine Sulfate) 4 mg IVPUSH Q3H PRN PRN Reason: PAIN LEVEL 7 - 10 Last Admin: 08/30/17 06:25 Dose: 4 mg Nicotine Polacrilex (Nicorette Gum -) 2 mg BUC Q2H PRN PRN Reason: NICOTINE REPLACEMENT RX Non-Formulary Medication (Naloxegol Oxalate [Movantik]) 25 mg PO DAILY TIM Ondansetron HCl (Zofran Injection) 4 mg IVPUSH Q6H PRN PRN Reason: NAUSEA AND/OR VOMITING Polyethylene Glycol (Miralax (For Daily Use) -) 17 gm PO Q24H PRN PRN Reason: CONSTIPATION Last Admin: 08/29/17 21:13 Dose: 17 gm Promethazine HCl (Phenergan Injection -) 12.5 mg IVPB Q6H PRN PRN Reason: NAUSEA AND/OR VOMITING ASSESSMENT AND PLAN: Spinal Stenosis Lumbar Spondylolysis s/p L3-S1 laminectomies/L3-L4, L4-L5 PLIF/L3-S1 PISF - pain control - incentive spirometry - benadryl for itching - bowel regimen - PO/activity/DVT prophylaxis/disposition per surgery
[2017-08-30] MEDS: HYDROmorphone *PCA* 10MG/50ML DISP.SYRIN PCA SCH ×3 (11:17→18:38)
[2017-08-30] MEDS ORDERED: diphenhydrAMINE HCL 25 MG CAPSULE (FP) PO PRN (11:31)
[2017-08-30] MEDS: ACETAMINOPHEN 1000 MG/100 ML VIAL (NON FORMULARY) IVPB PRN ×3 (12:58→23:34)
[2017-08-30] MEDS: GABAPENTIN 300 MG CAPSULE (FP) PO SCH ×2 (14:47→21:56)
[2017-08-30] MEDS: [UNRECOGNIZED DRUG - OTHER] PO SCH ×2 (15:32→21:56)
--- NOTE | 2017-08-30 17:05 | PATH ---
Surgical Pathology Report Patient Name: CASH GUPTA JR Med. Rec. #: [id number] /Age/Gender: 1970 (Age: 47) / M Account: [id number] Location: [address] [place] [address]/[facility] Taken: 08/28/2017 Received: 08/29/2017 Reported: 08/30/2017 Physicians: Lenny Park M.D. Specimen(s) Received L3, L4, L5 DISC Clinical History Spondylolisthesis Final Diagnosis L3, L4, L5 DISC, DISCECTOMY: FIBROCARTILAGINOUS TISSUE WITH DEGENERATIVE CHANGE. Electronically Signed Brennan Jasmine M.D. Gross Description Received in formalin, labeled "L3, L4, L5 disc" is a 2.5 x 2.5 x 1 cm aggregate of hernandez irregular soft tissue fragments. A inside technical sales representative portion is submitted in one cassette. LUÍS/08/29/2017 angelo/08/29/2017
[2017-08-30] MEDS: LACTATED RINGERS SOLUTION 1,000 ML IV SCH (21:56)
[2017-08-31] MEDS: morphine SULFATE 4 MG/ML VIAL IVPUSH PRN ×5 (00:38→21:35)
[2017-08-31] MEDS: ACETAMINOPHEN 1000 MG/100 ML VIAL (NON FORMULARY) IVPB PRN (07:45)
[2017-08-31] MEDS: ALBUTEROL SO4 2.5/IPRATROPIUM 0.5 INH SOL 3 ML VIAL.NEB. NEB SCH ×3 (08:40→16:01)
[2017-08-31 08:57] LABS: ALBUMIN 3.2 g/dl (3.4-5.0); ALK PHOS 59 U/L (45-117); ANION GAP 10 (8-16); BILIRUBIN,TOTAL 0.7 mg/dL (0.2-1.0); BLOOD UREA NITROGEN 6 mg/dL (7-18); CALCIUM 8.6 mg/dL (8.5-10.1); CHLORIDE 98 mmol/L (98-107); CO2 28 mmol/L (21-32); CREATININE 0.6 mg/dL (0.7-1.3); GLUCOSE,RANDOM 98 mg/dL (74-106); MAGNESIUM 2.2 mg/dL (1.8-2.4); PHOSPHOROUS 2.8 mg/dL (2.5-4.9); POTASSIUM 3.8 mmol/L (3.5-5.1); SGOT/AST 66 U/L (15-37); SGPT/ALT 42 U/L (12-78); SODIUM 136 mmol/L (136-145); TOT PROT 6.4 g/dl (6.4-8.2)
[2017-08-31 09:05] LABS: HEMATOCRIT 38.8 % (35.4-49); HEMOGLOBIN 13.3 GM/dL (11.7-16.9); MCH 30.6 pg (25.7-33.7); MCHC 34.3 g/dl (32.0-35.9); MEAN CELL VOLUME 89.2 fl (80-96); MEAN PLT VOLUME 7.9 fl (7.5-11.1); PLATELET COUNT 324 K/MM3 (134-434); RBC 4.34 M/mm3 (4.00-5.60); RDW 14.1 % (11.9-15.9); WHITE BLOOD COUNT 12.9 K/mm3 (4.0-10.0)
[2017-08-31] MEDS: GABAPENTIN 300 MG CAPSULE (FP) PO SCH ×3 (10:23→21:23)
--- NOTE | 2017-08-31 10:44 | PN ---
Physical Exam: SUBJECTIVE: Patient seen and examined at the bedside. Pain managed with morphine an Tylenol, on a GAS PLANT OPERATOR which he states not helping. No chest pain, not short of breath OBJECTIVE: constipated x 3 days Vital Signs Period Temp Pulse Resp BP Sys/Naylor Pulse Ox Last 24 Hr 98.8 F-99.0 F 72-90 18-22 127-146/70-82 97 GENERAL: The patient is awake, alert, and fully oriented, in no acute distress. HEAD: Normal with no signs of trauma. EYES: PERRL, extraocular movements intact, sclera anicteric, conjunctiva clear. No ptosis. ENT: Ears normal, nares patent, oropharynx clear without exudates NECK: Trachea midline, full range of motion, supple. LUNGS: Breath sounds equal, clear to auscultation bilaterally, no wheezes, no crackles, no accessory muscle use. HEART: Regular rate and rhythm ABDOMEN: Soft, nontender, nondistended, normoactive bowel sounds, no guarding, no rebound, no hepatosplenomegaly, no masses. EXTREMITIES: 2+ pulses, warm, well-perfused, no edema. NEUROLOGICAL: Cranial nerves II through XII grossly intact. Normal speech, gait not observed. PSYCH: Normal mood, normal affect. SKIN: Warm, dry, normal turgor, no rashes or lesions noted Laboratory Results - last 24 hr 08/31/17 08:05 WBC 12.9 H RBC 4.34 Hgb 13.3 Hct 38.8 MCV 89.2 MCH 30.6 MCHC 34.3 RDW 14.1 Plt Count 324 MPV 7.9 Active Medications Generic Name Dose Route Start Last Admin Trade Name Scotty PRN Reason Stop Dose Admin Acetaminophen 1,000 mg 08/30/17 08:27 08/30/17 23:34 Ofirmev Injection - IVPB 1,000 mg Q6H PRN Administration PAIN LEVEL 6-10 Acetaminophen 650 mg 08/31/17 10:33 Tylenol - PO Q6H PRN PAIN LEVEL 6-10 Albuterol/Ipratropium 1 amp 08/29/17 16:00 08/30/17 21:16 Duoneb - NEB 1 amp RQID TIM Administration Bisacodyl 10 mg 08/29/17 09:04 Dulcolax Suppository - RC PRN PRN CONSTIPATION Diphenhydramine HCl 25 mg 08/30/17 11:31 Benadryl - PO Q6H PRN FOR ITCHING Gabapentin 300 mg 08/30/17 14:00 08/31/17 10:23 Neurontin - PO Not Given TID TIM Hydromorphone HCl 10 mg 08/29/17 18:14 08/30/17 18:38 Dilaudid Counter Manager - GAS PLANT OPERATOR 09/04/17 23:37 Not Given GAS PLANT OPERATOR [facility] Protocol Lactated Ringer's 1,000 mls @ 75 mls/hr 08/29/17 15:19 08/30/17 21:56 Lactated Ringers Solution IV 75 mls/hr ASDIR TIM Administration Morphine Sulfate 4 mg 08/29/17 02:44 08/31/17 10:36 Morphine Sulfate IVPUSH 4 mg Q3H PRN Administration PAIN LEVEL 7 - 10 Nicotine Polacrilex 2 mg 08/29/17 15:07 Nicorette Gum - BUC Q2H PRN NICOTINE REPLACEMENT RX Ptnt's Own Med( 25 mg 08/30/17 22:00 08/30/17 21:56 Naloxegol Oxalate [ PO 25 mg Movantik] 25 Mg) HS [facility] Administration Ondansetron HCl 4 mg 08/28/17 23:15 Zofran Injection IVPUSH Q6H PRN NAUSEA AND/OR VOMITING Polyethylene Glycol 17 gm 08/29/17 19:52 08/29/17 21:13 Miralax (For Daily Use) - PO 17 gm Q24H PRN Administration CONSTIPATION Promethazine HCl 12.5 mg 08/28/17 23:37 Phenergan Injection - IVPB Q6H PRN NAUSEA AND/OR VOMITING ASSESSMENT/PLAN: Patient is a 47 year-old male with a PMHx of COPD, active smoker, and recess spinal stenosis, lumbar spondylolysis, and spina bifida occulta. He is s/p back surgery POD #2. Surgery: L3-S1 laminectomies, L5 Hinson laminectomy, L3-L4, L4-L5 PLIF, L3-S1 PISF, bone autograft, bone allograft on 08/28/17. Recess spinal stenosis, lumbar spondylolysis, spina bifida occulta Pain management with GAS PLANT OPERATOR, recently increased On Neurontin Bowel regimen with colace and miralax and pt home med Voiding well, but constipated Pulm: COPD, chronic Not in exacerbation. Monitor FEN Fluids: LR @ 125mL/hr Electrolytes: replete as indicated Nutrition: NPO until flatus Prophy: DVT: TEDs Visit type - Emergency Visit Emergency Visit: Yes ED Registration Date: 08/28/17 Care time: The patient presented to the Emergency Department on the above date and was hospitalized for further evaluation of their emergent condition. - New Patient This patient is new to me today: Yes Date on this admission: 08/31/17 - Critical Care Critical Care patient: No - Discharge Referral Referred to [facility] Med P.C.: No
[2017-08-31] MEDS: DOCUSATE SODIUM 100 MG CAPSULE (FP) PO SCH ×3 (11:50→21:34)
[2017-08-31] MEDS ORDERED: POLYETHYLENE GLYCOL 3350 119 GM BTL PO ONE (12:00)
[2017-08-31] MEDS: LACTATED RINGERS SOLUTION 1,000 ML IV SCH (12:11)
--- NOTE | 2017-08-31 13:05 | PN ---
Progress Note (short form) - Note Progress Note: POD #2. VSS. Pain score 8/10. Neurontin and Ofirmev were added yesterday. Will increase CAMPUS COORDINATOR dose to 0.4mg. Nurse instructed to give boluses as needed. Will follow.
[2017-08-31] MEDS ORDERED: DEXAMETHASONE SOD PHOSPHATE 4 MG/1 ML VIAL IVPUSH PRN (13:06)
[2017-08-31] MEDS: ACETAMINOPHEN 325 MG TABLET (FP) PO PRN ×2 (13:51→18:34)
[2017-08-31] MEDS: diphenhydrAMINE HCL 25 MG CAPSULE (FP) PO PRN (13:51)
[2017-08-31] MEDS: HYDROmorphone *PCA* 10MG/50ML DISP.SYRIN PCA SCH ×2 (14:35→20:08)
--- NOTE | 2017-08-31 18:18 | HOSP ---
Physical Examination Vital Signs: Vital Signs Temperature 98.2 F 08/31/17 14:00 Pulse Rate 76 08/31/17 15:04 Respiratory Rate 18 08/31/17 15:04 Blood Pressure 133/62 08/31/17 15:04 O2 Sat by Pulse Oximetry (%) 97 08/31/17 09:00 Labs: CBC, BMP 08/31/17 08:05 08/31/17 06:20 Hospitalist Encounter Assessment: Called by primary RN regarding bleeding noted on patient's surgical back dressing On exam patient is sitting up in bed, scant amt of chhaya red blood noted on patient bed linens Back dressing with chhaya red blood underneath large tegaderm Dressing carefully removed and noted to have saturated gauze dressings Back skin surgical site with intact jyamie but a small amt of blood oozing from below jaymie Site cleansed with NS and patted dry Sterile gauze reinforced to dressing with multiple ABD pads to cushion site Dr. Park informed of the bleeding by primary RN I also called Dr. Park and awaiting his call back Monitor site for any further bleeding
[2017-08-31] MEDS: [UNRECOGNIZED DRUG - OTHER] PO SCH (21:27)
[2017-09-01] MEDS: HYDROmorphone *PCA* 10MG/50ML DISP.SYRIN PCA SCH ×2 (01:15→06:58)
[2017-09-01] MEDS: LACTATED RINGERS SOLUTION 1,000 ML IV SCH (01:24)
[2017-09-01] MEDS: morphine SULFATE 4 MG/ML VIAL IVPUSH PRN ×5 (01:29→19:59)
[2017-09-01] MEDS: ACETAMINOPHEN 325 MG TABLET (FP) PO PRN ×4 (01:29→20:05)
[2017-09-01] MEDS: GABAPENTIN 300 MG CAPSULE (FP) PO SCH ×2 (05:54→13:54)
[2017-09-01] MEDS: DOCUSATE SODIUM 100 MG CAPSULE (FP) PO SCH ×3 (06:30→22:02)
[2017-09-01] MEDS: ALBUTEROL SO4 2.5/IPRATROPIUM 0.5 INH SOL 3 ML VIAL.NEB. NEB SCH ×4 (07:24→20:05)
[2017-09-01] MEDS: diphenhydrAMINE HCL 25 MG CAPSULE (FP) PO PRN ×3 (08:19→20:05)
--- NOTE | 2017-09-01 09:25 | PN ---
Progress Note (short form) - Note Progress Note: POD #4. VSS. Pt. currently sleeping in bed. TECHNICAL SUPPORT ASSOCIATE dose was increased yesterday. Will continue on current settings for now. For possible discharge later today in which case TECHNICAL SUPPORT ASSOCIATE will have to be discontinued. Will follow. If pt. stays over the weekend, consider chronic pain consult.
--- NOTE | 2017-09-01 10:18 | PN ---
Physical Exam: SUBJECTIVE: Patient seen and examined at the bedside. No further bleeding overnight from surgical sites. States pain is not controlled. Seen by anethesia. OBJECTIVE: Pain not controlled with dilaudid UPWARD BOUND DIRECTOR and morphine prn Seen by anethesia, no further uptitration at this time, will consult pain specialist Patient awaiting bed offer for rehab Dr. Park informed of the bleeding from surgical site on 08/31 by primary RN. Awaiting further recommendations. Vital Signs Period Temp Pulse Resp BP Sys/Naylor Pulse Ox Last 24 Hr 98.2 F-99.3 F 64-76 18-20 118-133/56-69 97 GENERAL: The patient is awake, alert, and fully oriented, in no acute distress. HEAD: Normal with no signs of trauma. EYES: PERRL, extraocular movements intact, sclera anicteric, conjunctiva clear. No ptosis. ENT: Ears normal, nares patent, oropharynx clear without exudates NECK: Trachea midline, full range of motion, supple. LUNGS: Breath sounds equal, clear to auscultation bilaterally, no wheezes, no crackles, no accessory muscle use. HEART: Regular rate and rhythm ABDOMEN: Soft, nontender, nondistended, normoactive bowel sounds, no guarding, no rebound, no hepatosplenomegaly, no masses. EXTREMITIES: 2+ pulses, warm, well-perfused, no edema. NEUROLOGICAL: Cranial nerves II through XII grossly intact. Normal speech, gait not observed. PSYCH: Normal mood, normal affect. SKIN: posterior sugical scar clean dry and intact Laboratory Results - last 24 hr 08/31/17 06:20 Sodium 136 Potassium 3.8 Chloride 98 Carbon Dioxide 28 Anion Gap 10 BUN 6 L D Creatinine 0.6 L Creat Clearance w eGFR > 60 Random Glucose 98 Calcium 8.6 Phosphorus 2.8 Magnesium 2.2 Total Bilirubin 0.7 AST 66 H ALT 42 Alkaline Phosphatase 59 Total Protein 6.4 Albumin 3.2 L Active Medications Generic Name Dose Route Start Last Admin Trade Name Freq PRN Reason Stop Dose Admin Acetaminophen 650 mg 08/31/17 10:33 09/01/17 08:19 Tylenol - PO 650 mg Q6H PRN Administration PAIN LEVEL 6-10 Albuterol/Ipratropium 1 amp 08/29/17 16:00 09/01/17 07:24 Duoneb - NEB 1 amp RQID TIM Administration Bisacodyl 10 mg 08/29/17 09:04 Dulcolax Suppository - RC PRN PRN CONSTIPATION Dexamethasone Sodium Phosphate 4 mg 08/31/17 13:06 Decadron Injection - IVPUSH ONCE PRN NAUSEA AND/OR VOMITING Diphenhydramine HCl 25 mg 08/31/17 10:47 09/01/17 08:19 Benadryl - PO 25 mg Q6H PRN Administration FOR ITCHING Docusate Sodium 100 mg 08/31/17 11:00 09/01/17 06:30 Colace - PO 100 mg TID TIM Administration Gabapentin 300 mg 08/30/17 14:00 09/01/17 05:54 Neurontin - PO 300 mg TID TIM Administration Hydromorphone HCl 10 mg 08/31/17 14:30 09/01/17 06:58 Dilaudid Bow Tacker - UPWARD BOUND DIRECTOR 09/04/17 14:29 10 mg UPWARD BOUND DIRECTOR TIM Administration Protocol Lactated Ringer's 1,000 mls @ 75 mls/hr 08/29/17 15:19 09/01/17 01:24 Lactated Ringers Solution IV 75 mls/hr ASDIR TIM Administration Morphine Sulfate 4 mg 09/01/17 05:23 09/01/17 08:20 Morphine Sulfate IVPUSH 4 mg Q3H PRN Administration PAIN LEVEL 7 - 10 Nicotine Polacrilex 2 mg 08/29/17 15:07 Nicorette Gum - BUC Q2H PRN NICOTINE REPLACEMENT RX Ptnt's Own Med( 25 mg 08/30/17 22:00 08/31/17 21:27 Naloxegol Oxalate [ PO 25 mg Movantik] 25 Mg) HS TIM Administration Ondansetron HCl 4 mg 08/28/17 23:15 Zofran Injection IVPUSH Q6H PRN NAUSEA AND/OR VOMITING Polyethylene Glycol 17 gm 08/29/17 19:52 08/29/17 21:13 Miralax (For Daily Use) - PO 17 gm Q24H PRN Administration CONSTIPATION Polyethylene Glycol 17 gm 09/01/17 10:00 Miralax (For Daily Use) - PO DAILY TIM Promethazine HCl 12.5 mg 08/28/17 23:37 Phenergan Injection - IVPB Q6H PRN NAUSEA AND/OR VOMITING ASSESSMENT/PLAN: Patient is a 47 year-old male with a PMHx of COPD, active smoker, and recess spinal stenosis, lumbar spondylolysis, and spina bifida occulta. He is s/p back surgery POD #3. Surgery: L3-S1 laminectomies, L5 Hinson laminectomy, L3-L4, L4-L5 PLIF, L3-S1 PISF, bone autograft, bone allograft on 08/28/17. Recess spinal stenosis, lumbar spondylolysis, spina bifida occulta Pain management with UPWARD BOUND DIRECTOR, morphine, tylenol. pain not controlled. consult with dr. roach, patient on high doses of oxycodone prior to surgery. On neurontin which seems to help. Bowel regimen, but not BM yet. Voiding well. Awaiting follow up from Dr. Park per acute bleeding episode on 09/[address] . Dr. Park aware of event per primary RN. Pulm: COPD, chronic Not in exacerbation. Monitor. on scheduled duonebs. FEN Fluids: LR @ 125mL/hr - will discontinue as tolerating PO Electrolytes: replete as indicated Nutrition: regular diet Prophy: DVT: TEDs, no anticoags secondary to back surgery and recent bleeding episode GI: deferred. Disposition: full code. Visit type - Emergency Visit Emergency Visit: Yes ED Registration Date: 08/28/17 Care time: The patient presented to the Emergency Department on the above date and was hospitalized for further evaluation of their emergent condition. - New Patient This patient is new to me today: No - Critical Care Critical Care patient: No - Discharge Referral Referred to [facility] Med P.C.: No
[2017-09-01] MEDS: POLYETHYLENE GLYCOL 3350 119 GM BTL PO SCH (10:41)
[2017-09-01 11:03] LABS: BASO % 0.7 % (0-2.0); EOS % 2.3 % (0-4.5); HEMATOCRIT 36.7 % (35.4-49); HEMOGLOBIN 12.6 GM/dL (11.7-16.9); LYMPH % 19.3 % (8-40); MCH 31.1 pg (25.7-33.7); MCHC 34.5 g/dl (32.0-35.9); MEAN CELL VOLUME 90.1 fl (80-96); MEAN PLT VOLUME 7.3 fl (7.5-11.1); MONO % 11.5 % (3.8-10.2); NEUT % 66.2 % (42.8-82.8); PLATELET COUNT 364 K/MM3 (134-434); RBC 4.07 M/mm3 (4.00-5.60); RDW 13.8 % (11.9-15.9); WHITE BLOOD COUNT 10.1 K/mm3 (4.0-10.0)
[2017-09-01 11:27] LABS: ANION GAP 6 (8-16); BLOOD UREA NITROGEN 6 mg/dL (7-18); CALCIUM 8.6 mg/dL (8.5-10.1); CHLORIDE 100 mmol/L (98-107); CO2 31 mmol/L (21-32); GLUCOSE,RANDOM 87 mg/dL (74-106); MAGNESIUM 2.2 mg/dL (1.8-2.4); POTASSIUM 3.8 mmol/L (3.5-5.1); SODIUM 137 mmol/L (136-145)
[2017-09-01 11:32] LABS: ALBUMIN 2.9 g/dl (3.4-5.0); ALK PHOS 53 U/L (45-117); BILIRUBIN,TOTAL 0.5 mg/dL (0.2-1.0); CREATININE 0.6 mg/dL (0.7-1.3); SGOT/AST 44 U/L (15-37); SGPT/ALT 38 U/L (12-78); TOT PROT 6.2 g/dl (6.4-8.2)
--- NOTE | 2017-09-01 21:09 | CONSULT ---
Consult Consult Specialty:: Pain Management - History of Present Illness Chief Complaint: Low back pain. History of Present Illness: 47 yr old male with Chronic LBP with left leg pain had laminectomies and interbody fusion. Pain 10/10 on FINANCIAL SERVICES SPECIALIST and IV Morphine . - History Source Limitations to Obtaining History: No Limitations - Past Surgical History Past Surgical History: Yes: Arthrosocopy, Hernia Repair - Alcohol/Substance Use Hx Alcohol Use: No - Smoking History Smoking history: Current some day smoker Have you smoked in the past 12 months: Yes Aproximately how many cigarettes per day: 10 Home Medications - Allergies Allergies/Adverse Reactions: Allergies Allergy/AdvReac Type Severity Reaction Status Date / Time No Known Drug Allergies Allergy Verified 08/28/17 14:58 - Home Medications Home Medications: Ambulatory Orders Ibuprofen [Motrin -] 800 mg PO PRN 08/25/17 Naloxegol Oxalate [Movantik] 25 mg PO DAILY 08/25/17 Review of Systems - Review of Systems Constitutional: reports: No Symptoms Eyes: reports: No Symptoms HENT: reports: No Symptoms Neck: reports: No Symptoms Cardiovascular: reports: No Symptoms Respiratory: reports: No Symptoms Gastrointestinal: reports: Constipation Genitourinary: reports: No Symptoms Musculoskeletal: reports: Back Pain, Other Pain Intensity: 10 Physical Exam Vital Signs: Vital Signs Temperature 99.1 F 09/01/17 17:00 Pulse Rate 76 09/01/17 17:00 Respiratory Rate 20 09/01/17 17:00 Blood Pressure 130/68 09/01/17 17:00 O2 Sat by Pulse Oximetry (%) 97 09/01/17 09:00 Constitutional: Yes: Well Nourished Eyes: Yes: WNL HENT: Yes: WNL Neck: Yes: WNL Cardiovascular: Yes: WNL Respiratory: Yes: WNL Gastrointestinal: Yes: Soft, Abdomen, Obese Musculoskeletal: Yes: Back Pain, Other (dressing +) Extremities: Yes: WNL Edema: No Wound/Incision: Yes: Clean/Dry Neurological: Yes: WNL ...Motor Strength: WNL Labs: CBC, BMP 09/01/17 09:40 09/01/17 09:40 Current Medications Generic Name Dose Route Start Last Admin Trade Name Freq PRN Reason Stop Dose Admin Acetaminophen 650 mg 08/31/17 10:33 09/01/17 20:05 Tylenol - PO 650 mg Q6H PRN Administration PAIN LEVEL 6-10 Albuterol/Ipratropium 1 amp 08/29/17 16:00 09/01/17 20:05 Duoneb - NEB 1 amp RQID TIM Administration Bisacodyl 10 mg 08/29/17 09:04 Dulcolax Suppository - RC PRN PRN CONSTIPATION Dexamethasone Sodium Phosphate 4 mg 08/31/17 13:06 Decadron Injection - IVPUSH ONCE PRN NAUSEA AND/OR VOMITING Diphenhydramine HCl 25 mg 08/31/17 10:47 09/01/17 20:05 Benadryl - PO 25 mg Q6H PRN Administration FOR ITCHING Docusate Sodium 100 mg 08/31/17 11:00 09/01/17 13:54 Colace - PO 100 mg TID TIM Administration Gabapentin 300 mg 08/30/17 14:00 09/01/17 13:54 Neurontin - PO 300 mg TID TIM Administration Hydromorphone HCl 10 mg 08/31/17 14:30 09/01/17 06:58 Dilaudid Compotype Operator - FINANCIAL SERVICES SPECIALIST 09/04/17 14:29 10 mg FINANCIAL SERVICES SPECIALIST TIM Administration Protocol Morphine Sulfate 4 mg 09/01/17 05:23 09/01/17 19:59 Morphine Sulfate IVPUSH 4 mg Q3H PRN Administration PAIN LEVEL 7 - 10 Nicotine Polacrilex 2 mg 08/29/17 15:07 Nicorette Gum - BUC Q2H PRN NICOTINE REPLACEMENT RX Ptnt's Own Med( 25 mg 08/30/17 22:00 08/31/17 21:27 Naloxegol Oxalate [ PO 25 mg Movantik] 25 Mg) HS TIM Administration Ondansetron HCl 4 mg 08/28/17 23:15 Zofran Injection IVPUSH Q6H PRN NAUSEA AND/OR VOMITING Polyethylene Glycol 17 gm 08/29/17 19:52 08/29/17 21:13 Miralax (For Daily Use) - PO 17 gm Q24H PRN Administration CONSTIPATION Polyethylene Glycol 17 gm 09/01/17 10:00 09/01/17 10:41 Miralax (For Daily Use) - PO 17 gm DAILY TIM Administration Promethazine HCl 12.5 mg 08/28/17 23:37 Phenergan Injection - IVPB Q6H PRN NAUSEA AND/OR VOMITING Problem List - Problems (1) Fusion of lumbar spine Code(s): M43.26 - FUSION OF SPINE, LUMBAR REGION (2) Post-operative pain Code(s): G89.18 - OTHER ACUTE POSTPROCEDURAL PAIN Assessment/Plan Discussed in detail and answered all questions. 1. D/C FINANCIAL SERVICES SPECIALIST and IV Morphine 2. Fentanyl patch 75 mcg/hr Oxycodone 10 mg q6 PRN Lyrica Relistor D/C Neurontin Diazepam Discussed with Dr. Park about pain medication. Thank you very much for your kind referral Dr. Contreras [phone].
[2017-09-01] MEDS ORDERED: FENTANYL PATCH WASTE MC PRN (21:15)
[2017-09-01] MEDS ORDERED: fentaNYL 75mcg/hr PATCH.TD72 TD SCH (21:15)
[2017-09-01] MEDS: PREGABALIN 75 MG CAPSULE PO SCH (22:02)
[2017-09-01] MEDS: Methylnaltrexone Bromide 12 MG/0.6 ML KIT SQ SCH (22:02)
[2017-09-01] MEDS: diazePAM 5 MG TABLET PO SCH (22:02)
[2017-09-01] MEDS: KETOROLAC TROMETHAMINE 15 MG/ML VIAL IVPUSH SCH (22:04)
[2017-09-02] MEDS: oxyCODONE HCL 5 MG TABLET PO PRN ×4 (00:22→20:34)
[2017-09-02] MEDS: morphine SULFATE 4 MG/ML VIAL IVPUSH PRN ×3 (02:34→09:32)
[2017-09-02] MEDS: DOCUSATE SODIUM 100 MG CAPSULE (FP) PO SCH ×3 (05:42→22:00)
[2017-09-02 06:34] LABS: BASO % 0.8 % (0-2.0); HEMATOCRIT 38.4 % (35.4-49); HEMOGLOBIN 13.1 GM/dL (11.7-16.9); LYMPH % 24.5 % (8-40); MCH 30.7 pg (25.7-33.7); MCHC 34.1 g/dl (32.0-35.9); MONO % 12.4 % (3.8-10.2); NEUT % 59.3 % (42.8-82.8); PLATELET COUNT 428 K/MM3 (134-434); RBC 4.27 M/mm3 (4.00-5.60); RDW 13.9 % (11.9-15.9)
[2017-09-02 07:17] LABS: ALBUMIN 3.2 g/dl (3.4-5.0); ANION GAP 3 (8-16); BLOOD UREA NITROGEN 7 mg/dL (7-18); CHLORIDE 98 mmol/L (98-107); CO2 33 mmol/L (21-32); GLUCOSE,RANDOM 94 mg/dL (74-106); POTASSIUM 4.5 mmol/L (3.5-5.1); SGOT/AST 39 U/L (15-37); SGPT/ALT 40 U/L (12-78); SODIUM 134 mmol/L (136-145)
[2017-09-02 07:19] LABS: ALK PHOS 58 U/L (45-117); BILIRUBIN,TOTAL 0.5 mg/dL (0.2-1.0); CALCIUM 8.9 mg/dL (8.5-10.1); CREATININE 0.8 mg/dL (0.7-1.3); MAGNESIUM 2.3 mg/dL (1.8-2.4); TOT PROT 6.9 g/dl (6.4-8.2)
[2017-09-02] MEDS: ALBUTEROL SO4 2.5/IPRATROPIUM 0.5 INH SOL 3 ML VIAL.NEB. NEB SCH ×4 (07:20→21:15)
[2017-09-02] MEDS: ACETAMINOPHEN 325 MG TABLET (FP) PO PRN ×2 (07:31→15:04)
[2017-09-02] MEDS: PREGABALIN 75 MG CAPSULE PO SCH ×2 (09:19→21:59)
[2017-09-02] MEDS: diazePAM 5 MG TABLET PO SCH ×2 (09:19→22:00)
[2017-09-02] MEDS: POLYETHYLENE GLYCOL 3350 119 GM BTL PO SCH (09:21)
--- NOTE | 2017-09-02 10:01 | PN ---
Physical Exam: SUBJECTIVE: Patient seen and examined at the bedside. Feels tired today, eager to start rehab. Seen by pain specialist yesterday, pain better controlled. 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 Contreras. Vital Signs Period Temp Pulse Resp BP Sys/Naylor Pulse Ox Last 24 Hr 98.0 F-99.9 F 74-80 18-21 103-143/56-74 97 GENERAL: The patient is awake, alert, and fully oriented, in no acute distress. HEAD: Normal with no signs of trauma. EYES: PERRL, extraocular movements intact, sclera anicteric, conjunctiva clear. No ptosis. ENT: Ears normal, nares patent, oropharynx clear without exudates NECK: Trachea midline, full range of motion, supple. LUNGS: Breath sounds equal, clear to auscultation bilaterally, no wheezes, no crackles, no accessory muscle use. HEART: Regular rate and rhythm ABDOMEN: Soft, nontender, nondistended, normoactive bowel sounds, no guarding, no rebound, no hepatosplenomegaly, no masses. EXTREMITIES: 2+ pulses, warm, well-perfused, no edema. NEUROLOGICAL: Cranial nerves II through XII grossly intact. Normal speech, gait not observed. PSYCH: Normal mood, normal affect. SKIN: posterior surgical scar clean dry and intact Laboratory Results - last 24 hr 09/01/17 09/01/17 09/02/17 09:40 09:40 06:00 WBC 10.1 H 10.0 RBC 4.07 4.27 Hgb 12.6 13.1 Hct 36.7 38.4 MCV 90.1 90.0 MCH 31.1 30.7 MCHC 34.5 34.1 RDW 13.8 13.9 Plt Count 364 428 MPV 7.3 L 7.0 L Absolute Neuts (auto) 6.7 5.9 Neutrophils % 66.2 59.3 Lymphocytes % 19.3 24.5 D Monocytes % 11.5 H 12.4 H Eosinophils % 2.3 3.0 Basophils % 0.7 0.8 Nucleated RBC % 0 0 Sodium 137 Potassium 3.8 Chloride 100 Carbon Dioxide 31 Anion Gap 6 L BUN 6 L Creatinine 0.6 L Creat Clearance w eGFR > 60 Random Glucose 87 Calcium 8.6 Magnesium 2.2 Total Bilirubin 0.5 D AST 44 H D ALT 38 Alkaline Phosphatase 53 Total Protein 6.2 L Albumin 2.9 L 09/02/17 06:00 WBC RBC Hgb Hct MCV MCH MCHC RDW Plt Count MPV Absolute Neuts (auto) Neutrophils % Lymphocytes % Monocytes % Eosinophils % Basophils % Nucleated RBC % Sodium 134 L Potassium 4.5 Chloride 98 Carbon Dioxide 33 H Anion Gap 3 L BUN 7 Creatinine 0.8 D Creat Clearance w eGFR > 60 Random Glucose 94 Calcium 8.9 Magnesium 2.3 Total Bilirubin 0.5 AST 39 H ALT 40 Alkaline Phosphatase 58 Total Protein 6.9 Albumin 3.2 L Active Medications Generic Name Dose Route Start Last Admin Trade Name Freq PRN Reason Stop Dose Admin Acetaminophen 650 mg 08/31/17 10:33 09/02/17 07:31 Tylenol - PO 650 mg Q6H PRN Administration PAIN LEVEL 6-10 Albuterol/Ipratropium 1 amp 08/29/17 16:00 09/02/17 07:20 Duoneb - NEB 1 amp RQID TIM Administration Bisacodyl 10 mg 08/29/17 09:04 Dulcolax Suppository - RC PRN PRN CONSTIPATION Dexamethasone Sodium Phosphate 4 mg 08/31/17 13:06 Decadron Injection - IVPUSH ONCE PRN NAUSEA AND/OR VOMITING Diazepam 10 mg 09/01/17 22:00 09/02/17 09:19 Valium - PO 09/04/17 21:18 10 mg BID TIM Administration Diphenhydramine HCl 25 mg 08/31/17 10:47 09/01/17 20:05 Benadryl - PO 25 mg Q6H PRN Administration FOR ITCHING Docusate Sodium 100 mg 08/31/17 11:00 09/02/17 05:42 Colace - PO 100 mg TID TIM Administration Fentanyl 1 patch 09/01/17 21:15 09/01/17 22:02 Duragesic 75mcg Patch - TD 1 patch Q72H TIM Administration Ketorolac Tromethamine 15 mg 09/01/17 22:00 09/01/17 22:04 Toradol Injection - IVPUSH 09/06/17 21:59 15 mg Q12H TIM Administration Methylnaltrexone [place] 12 mg 09/01/17 21:30 09/01/17 22:02 Relistor - SQ 12 mg DAILY TIM Administration Miscellaneous 1 each 09/01/17 21:15 Duragesic Patch Waste MC PRN PRN PAIN Morphine Sulfate 4 mg 09/01/17 05:23 09/02/17 09:32 Morphine Sulfate IVPUSH 4 mg Q3H PRN Administration PAIN LEVEL 7 - 10 Nicotine Polacrilex 2 mg 08/29/17 15:07 Nicorette Gum - BUC Q2H PRN NICOTINE REPLACEMENT RX Ondansetron HCl 4 mg 08/28/17 23:15 Zofran Injection IVPUSH Q6H PRN NAUSEA AND/OR VOMITING Oxycodone HCl 10 mg 09/02/17 00:17 09/02/17 07:30 Roxicodone - PO 10 mg Q6H PRN Administration PAIN LEVEL 6-10 Polyethylene Glycol 17 gm 08/29/17 19:52 08/29/17 21:13 Miralax (For Daily Use) - PO 17 gm Q24H PRN Administration CONSTIPATION Polyethylene Glycol 17 gm 09/01/17 10:00 09/02/17 09:21 Miralax (For Daily Use) - PO 17 gm DAILY TIM Administration Pregabalin 75 mg 09/01/17 22:00 09/02/17 09:19 Lyrica - PO 75 mg BID TIM Administration Promethazine HCl 12.5 mg 08/28/17 23:37 Phenergan Injection - IVPB Q6H PRN NAUSEA AND/OR VOMITING ASSESSMENT/PLAN: ASSESSMENT/PLAN: Patient is a 47 year-old male with a PMHx of COPD, active smoker, and recess spinal stenosis, lumbar spondylolysis, and spina bifida occulta. He is s/p back surgery on 08/28/[address]David Park. Surgery: L3-S1 laminectomies, L5 Hinson laminectomy, L3-L4, L4-L5 PLIF, L3-S1 PISF, bone autograft, bone allograft on 08/28/17. Recess spinal stenosis, lumbar spondylolysis, spina bifida occulta Seen by pain management. 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 Awaiting follow up from Dr. Park per acute bleeding episode on from back surgery. Dr. Park aware. Remains constipated, on a bowel regimen and given Relistor x 1. If no result, then tap water enema. Pulm: COPD, chronic Not in exacerbation. Monitor. on scheduled duonebs. Psyche: Smoking, cessation discussed. On Nicorette gum prn. FEN Fluids: tolerating PO Electrolytes: replete as indicated Nutrition: regular diet Prophy: DVT: TEDs, no anticoags secondary to back surgery and recent bleeding episode GI: deferred. Disposition: full code. Visit type - Emergency Visit Emergency Visit: Yes ED Registration Date: 08/28/17 Care time: The patient presented to the Emergency Department on the above date and was hospitalized for further evaluation of their emergent condition. - New Patient This patient is new to me today: No - Critical Care Critical Care patient: No - Discharge Referral Referred to [facility] Med P.C.: No
[2017-09-02] MEDS ORDERED: BISACODYL 5 MG TABLET.DR (FP) PO ONE (10:50)
[2017-09-02] MEDS: Methylnaltrexone Bromide 12 MG/0.6 ML KIT SQ SCH (10:59)
[2017-09-02] MEDS: KETOROLAC TROMETHAMINE 15 MG/ML VIAL IVPUSH SCH ×2 (11:05→22:01)
--- NOTE | 2017-09-02 18:48 | PN ---
Progress Note (short form) - Note Progress Note: POD#5 Pain better controlled. No headache No leg pain Walked in the hallway. Wound dry New dressing applied. Vitals all stable CVS Stable Resp Clear ABD Soft Passing flatus No stool as yet Neuro At baseline ASSESSMENT POst Lumbar sacral PLIF and Instrumented spinal fusion STABLEA Pain mx better PLAN Movantik ordered Brought in from home. Continue general nursing Dry dressings PRN PT Continue FWBAT D/C planning ? Marcial See in office in 3 weeks
[2017-09-02] MEDS: diphenhydrAMINE HCL 25 MG CAPSULE (FP) PO PRN (20:35)
[2017-09-02] MEDS: SENNOSIDES 8.6MG TABLET (FP) PO SCH (22:00)
[2017-09-02] MEDS: NALOXEGOL PO SCH (22:00)
[2017-09-03] MEDS: DOCUSATE SODIUM 100 MG CAPSULE (FP) PO SCH ×3 (05:26→21:05)
[2017-09-03] MEDS: oxyCODONE HCL 5 MG TABLET PO PRN ×3 (05:26→17:37)
[2017-09-03] MEDS: ACETAMINOPHEN 325 MG TABLET (FP) PO PRN (06:33)
[2017-09-03] MEDS: ALBUTEROL SO4 2.5/IPRATROPIUM 0.5 INH SOL 3 ML VIAL.NEB. NEB SCH ×4 (08:19→20:37)
[2017-09-03] MEDS: PREGABALIN 75 MG CAPSULE PO SCH ×2 (09:24→21:05)
[2017-09-03] MEDS: diazePAM 5 MG TABLET PO SCH (09:25)
[2017-09-03] MEDS: POLYETHYLENE GLYCOL 3350 119 GM BTL PO SCH (09:27)
[2017-09-03] MEDS: NALOXEGOL PO SCH ×2 (10:00→21:07)
[2017-09-03] MEDS: KETOROLAC TROMETHAMINE 15 MG/ML VIAL IVPUSH SCH (11:14)
--- NOTE | 2017-09-03 11:47 | PN ---
Progress Note (short form) - Note Progress Note: Stable No changes although did pass stool. Wound dry Neuro at baseline PLAN Pain mx PT Mobilize
--- NOTE | 2017-09-03 19:29 | PN ---
Physical Exam: SUBJECTIVE: Patient seen and examined. c/o pain 11/10 not controlled. was going to sign out ama. + BM + flatulence OBJECTIVE: Vital Signs Period Temp Pulse Resp BP Sys/Naylor Pulse Ox Last 24 Hr 96.8 F-99.4 F 69-78 20-20 131-151/65-85 98 Pe Neuro: alert, awake, cn 2-12 intact Pulm: CTAB CV: s1 s2 rrr Abd: s ntnd +bs Ext: warm no le edema Msk: lower back incision dressing cdi + back tenderness Active Medications Generic Name Dose Route Start Last Admin Trade Name Freq PRN Reason Stop Dose Admin Acetaminophen 650 mg 08/31/17 10:33 09/03/17 06:33 Tylenol - PO 650 mg Q6H PRN Administration PAIN LEVEL 6-10 Albuterol/Ipratropium 1 amp 08/29/17 16:00 09/03/17 15:45 Duoneb - NEB Not Given RQID TIM Bisacodyl 10 mg 08/29/17 09:04 Dulcolax Suppository - RC PRN PRN CONSTIPATION Dexamethasone Sodium Phosphate 4 mg 08/31/17 13:06 09/02/17 17:15 Decadron Injection - IVPUSH 4 mg ONCE PRN Administration NAUSEA AND/OR VOMITING Diazepam 10 mg 09/01/17 22:00 09/03/17 09:25 Valium - PO 09/04/17 21:18 10 mg BID TIM Administration Diphenhydramine HCl 25 mg 08/31/17 10:47 09/02/17 20:35 Benadryl - PO 25 mg Q6H PRN Administration FOR ITCHING Docusate Sodium 200 mg 09/02/17 10:02 09/03/17 13:38 Colace - PO 200 mg TID ITM Administration Fentanyl 1 patch 09/01/17 21:15 09/01/17 22:02 Duragesic 75mcg Patch - TD 1 patch Q72H TIM Administration Ketorolac Tromethamine 15 mg 09/01/17 22:00 09/03/17 11:14 Toradol Injection - IVPUSH 09/06/17 21:59 15 mg Q12H TIM Administration Miscellaneous 1 each 09/01/17 21:15 Duragesic Patch Waste MC PRN PRN PAIN Nicotine Polacrilex 2 mg 08/29/17 15:07 Nicorette Gum - BUC Q2H PRN NICOTINE REPLACEMENT RX Ptient's Own Med ( 1 each 09/02/17 22:00 09/03/17 10:00 Naloxegol Oxalate ( PO 1 each Movantik) BID TIM Administration Ondansetron HCl 4 mg 08/28/17 23:15 Zofran Injection IVPUSH Q6H PRN NAUSEA AND/OR VOMITING Oxycodone HCl 10 mg 09/02/17 00:17 09/03/17 17:37 Roxicodone - PO 10 mg Q6H PRN Administration PAIN LEVEL 6-10 Polyethylene Glycol 17 gm 09/01/17 10:00 09/03/17 09:27 Miralax (For Daily Use) - PO 17 gm DAILY TIM Administration Pregabalin 75 mg 09/01/17 22:00 09/03/17 09:24 Lyrica - PO 75 mg BID TIM Administration Promethazine HCl 12.5 mg 08/28/17 23:37 Phenergan Injection - IVPB Q6H PRN NAUSEA AND/OR VOMITING Senna 2 tab 09/02/17 22:00 09/02/17 22:00 Senna - PO 2 tab HS TIM Administration Assessment: 47 year-old male with a PMHx of COPD, active smoker, and recess spinal stenosis, lumbar spondylolysis, and spina bifida occulta s/p spinal sx . Plan: 1. s/p L3-S1 laminectomies, L5 Hinson laminectomy, L3-L4, L4-L5 PLIF, L3-S1 PISF, bone autograft, bone allograft on 08/28/17. - Pain uncontrolled - Dilaudid iv prn , fent patch, oxy prn, stop gabapentin - Additional pain meds per jacqueline - Rehab , ? tomorrow Visit type - Emergency Visit Emergency Visit: Yes ED Registration Date: 08/28/17 Care time: The patient presented to the Emergency Department on the above date and was hospitalized for further evaluation of their emergent condition. - New Patient This patient is new to me today: Yes Date on this admission: 09/03/17 - Critical Care Critical Care patient: No
[2017-09-03] MEDS ORDERED: ACETAMINOPHEN 1000 MG/100 ML VIAL (NON FORMULARY) IVPB SCH (20:15)
[2017-09-03] MEDS: ACETAMINOPHEN 1000 MG/100 ML VIAL (NON FORMULARY) IVPB SCH (20:32)
[2017-09-03] MEDS: diazePAM 2 MG TABLET PO SCH (20:32)
[2017-09-03] MEDS: HYDROmorphone *PCA* 10MG/50ML DISP.SYRIN PCA SCH (20:42)
[2017-09-03] MEDS: SENNOSIDES 8.6MG TABLET (FP) PO SCH (21:05)
[2017-09-03] MEDS ORDERED: PT OWN MED DRAWER 7, Y5N ONE (21:07)
[2017-09-03] MEDS ORDERED: oxyCODONE HCL 5 MG TABLET PO ONE (21:21)
[2017-09-03] MEDS ORDERED: morphine SULFATE 4 MG/ML VIAL IVPUSH ONE (21:25)
[2017-09-03] MEDS ORDERED: MORPHINE SULFATE 2 MG/ML VIAL IVPUSH PRN (23:55)
[2017-09-04] MEDS: oxyCODONE HCL 5 MG TABLET PO PRN ×3 (01:32→17:15)
[2017-09-04] MEDS: ACETAMINOPHEN 1000 MG/100 ML VIAL (NON FORMULARY) IVPB SCH ×3 (04:18→20:40)
[2017-09-04] MEDS: DOCUSATE SODIUM 100 MG CAPSULE (FP) PO SCH ×3 (07:17→21:40)
[2017-09-04] MEDS: ALBUTEROL SO4 2.5/IPRATROPIUM 0.5 INH SOL 3 ML VIAL.NEB. NEB SCH ×4 (08:06→20:21)
[2017-09-04 08:31] LABS: CHLORIDE 104 mmol/L (98-107); POTASSIUM 4.6 mmol/L (3.5-5.1); SODIUM 139 mmol/L (136-145)
[2017-09-04 08:39] LABS: ALBUMIN 3.1 g/dl (3.4-5.0); ALK PHOS 53 U/L (45-117); ANION GAP 8 (8-16); BILIRUBIN,TOTAL 0.4 mg/dL (0.2-1.0); BLOOD UREA NITROGEN 11 mg/dL (7-18); CALCIUM 9.2 mg/dL (8.5-10.1); CO2 27 mmol/L (21-32); CREATININE 0.8 mg/dL (0.7-1.3); GLUCOSE,RANDOM 82 mg/dL (74-106); SGOT/AST 30 U/L (15-37); SGPT/ALT 44 U/L (12-78); TOT PROT 6.6 g/dl (6.4-8.2)
[2017-09-04] MEDS ORDERED: PT OWN MED DRAWER 7, Y5N ONE (09:20)
[2017-09-04] MEDS: diazePAM 2 MG TABLET PO SCH ×2 (09:26→21:38)
[2017-09-04] MEDS: PREGABALIN 75 MG CAPSULE PO SCH ×3 (09:26→21:38)
[2017-09-04] MEDS: NALOXEGOL PO SCH ×2 (09:27→21:38)
[2017-09-04] MEDS: POLYETHYLENE GLYCOL 3350 119 GM BTL PO SCH (09:30)
[2017-09-04] MEDS ORDERED: PREGABALIN 75 MG CAPSULE PO ONE (10:19)
--- NOTE | 2017-09-04 10:24 | PN ---
Progress Note (short form) - Note Progress Note: 47 yr old male with Back pain S/P Lumbar fusion. pain 5-6/10. Doing much better. ambulating on floor with supervision. D/c Iv medication. Increase Lyrica decrease Diazepam. He will benefit with Short term rehab prior tod/c home. Thanks Problem List - Problems (1) Fusion of lumbar spine Code(s): M43.26 - FUSION OF SPINE, LUMBAR REGION (2) Post-operative pain Code(s): G89.18 - OTHER ACUTE POSTPROCEDURAL PAIN
[2017-09-04] MEDS ORDERED: FENTANYL PATCH WASTE TD PRN (10:45)
[2017-09-04] MEDS ORDERED: fentaNYL 75mcg/hr PATCH.TD72 TD SCH (10:45)
[2017-09-04] MEDS ORDERED: MORPHINE SULFATE 2 MG/ML VIAL IVPUSH ONE (10:45)
--- NOTE | 2017-09-04 12:09 | PN ---
Progress Note (short form) - Note Progress Note: Subjective: The patient was seen and examined at the bedside, he reports still with pain. Fentanyl patch found to be crumpled on his right upper arm, requested RN change it early Current Medications Generic Name Dose Route Start Last Admin Trade Name Freq PRN Reason Stop Dose Admin Acetaminophen 650 mg 08/31/17 10:33 09/03/17 06:33 Tylenol - PO 650 mg Q6H PRN Administration PAIN LEVEL 6-10 Acetaminophen 1,000 mg 09/03/17 20:15 09/04/17 04:18 Ofirmev Injection - IVPB 1,000 mg Q8H TIM Administration Albuterol/Ipratropium 1 amp 08/29/17 16:00 09/04/17 08:06 Duoneb - NEB 1 amp RQID TIM Administration Bisacodyl 10 mg 08/29/17 09:04 Dulcolax Suppository - RC PRN PRN CONSTIPATION Dexamethasone Sodium Phosphate 4 mg 08/31/17 13:06 09/02/17 17:15 Decadron Injection - IVPUSH 4 mg ONCE PRN Administration NAUSEA AND/OR VOMITING Diazepam 2 mg 09/03/17 20:15 09/04/17 09:26 Valium - PO 2 mg BID TIM Administration Diphenhydramine HCl 25 mg 08/31/17 10:47 09/02/17 20:35 Benadryl - PO 25 mg Q6H PRN Administration FOR ITCHING Docusate Sodium 200 mg 09/02/17 10:02 09/04/17 07:17 Colace - PO 200 mg TID TIM Administration Fentanyl 1 patch 09/04/17 10:45 09/04/17 10:42 Duragesic 75mcg Patch - TD 09/11/17 10:44 1 patch Q72H TIM Administration Miscellaneous 1 each 09/04/17 10:45 Duragesic Patch Waste TD 09/11/17 10:44 PRN PRN PAIN Nicotine Polacrilex 2 mg 08/29/17 15:07 Nicorette Gum - BUC Q2H PRN NICOTINE REPLACEMENT RX Ptient's Own Med ( 1 each 09/02/17 22:00 09/04/17 09:27 Naloxegol Oxalate ( PO 1 each Movantik) BID TIM Administration Ondansetron HCl 4 mg 08/28/17 23:15 Zofran Injection IVPUSH Q6H PRN NAUSEA AND/OR VOMITING Oxycodone HCl 10 mg 09/02/17 00:17 09/04/17 08:12 Roxicodone - PO 10 mg Q6H PRN Administration PAIN LEVEL 6-10 Polyethylene Glycol 17 gm 09/01/17 10:00 09/04/17 09:30 Miralax (For Daily Use) - PO Not Given DAILY TIM Pregabalin 75 mg 09/04/17 14:00 Lyrica - PO TID TIM Promethazine HCl 12.5 mg 08/28/17 23:37 Phenergan Injection - IVPB Q6H PRN NAUSEA AND/OR VOMITING Senna 2 tab 09/02/17 22:00 09/03/17 21:05 Senna - PO 2 tab HS TIM Administration Objective: Vital Signs Period Temp Pulse Resp BP Sys/Naylor Pulse Ox Last 24 Hr 97.9 F-98.9 F 64-79 18-20 122-143/69-79 98-98 Physical Exam: General: NAD, A&Ox3 Lungs: CTA bilaterally Heart: RRR, S1S2 Abd: Soft, non-distended Back: Lower back dressing, c/d/i Neuro: No focal deficits CBCD WBC 10.0 K/mm3 (4.0-10.0) 09/02/17 06:00 RBC 4.27 M/mm3 (4.00-5.60) 09/02/17 06:00 Hgb 13.1 GM/dL (11.7-16.9) 09/02/17 06:00 Hct 38.4 % (35.4-49) 09/02/17 06:00 MCV 90.0 fl (80-96) 09/02/17 06:00 MCHC 34.1 g/dl (32.0-35.9) 09/02/17 06:00 RDW 13.9 % (11.9-15.9) 09/02/17 06:00 Plt Count 428 K/MM3 (134-434) 09/02/17 06:00 MPV 7.0 fl (7.5-11.1) L 09/02/17 06:00 CMP Sodium 139 mmol/L (136-145) 09/04/17 07:26 Potassium 4.6 mmol/L (3.5-5.1) 09/04/17 07:26 Chloride 104 mmol/L (98-107) 09/04/17 07:26 Carbon Dioxide 27 mmol/L (21-32) 09/04/17 07:26 Anion Gap 8 (8-16) 09/04/17 07:26 BUN 11 mg/dL (7-18) D 09/04/17 07:26 Creatinine 0.8 mg/dL (0.7-1.3) 09/04/17 07:26 Creat Clearance w eGFR > 60 (>60) 09/04/17 07:26 Random Glucose 82 mg/dL (74-106) 09/04/17 07:26 Calcium 9.2 mg/dL (8.5-10.1) 09/04/17 07:26 Total Bilirubin 0.4 mg/dL (0.2-1.0) 09/04/17 07:26 AST 30 U/L (15-37) D 09/04/17 07:26 ALT 44 U/L (12-78) 09/04/17 07:26 Alkaline Phosphatase 53 U/L (45-117) 09/04/17 07:26 Total Protein 6.6 g/dl (6.4-8.2) 09/04/17 07:26 Albumin 3.1 g/dl (3.4-5.0) L 09/04/17 07:26 Assessment: This is a 47 year old male with PMHx of COPD, active smoker, recess spinal stenosis, lumbar spondylolysis, and spina bifida occulta s/p spinal sx 02/04 Plan: 1) S/p L3-S1 laminectomies, L5 Hinson laminectomy, L3-L4, L4-L5 PLIF, L3-S1 PISF, bone autograft, bone allograft on 08/28/17. - Pain control has been an issue - Continue Fentanyl patch - Appreciate pain consult: increase lyrica, decrease diazepam, discontinue IV pain medications - Appreciate ortho consult 2) F/E/N: - Regular diet - Monitor electrolytes 3) Prophylaxis: - OOB ambulatings - SCDs bilaterally 4) Dispo: - Awaiting SNF placement CODE STATUS: FULL CODE Visit type - Emergency Visit Emergency Visit: Yes ED Registration Date: 08/28/17 Care time: The patient presented to the Emergency Department on the above date and was hospitalized for further evaluation of their emergent condition. - New Patient This patient is new to me today: Yes Date on this admission: 09/04/17 - Critical Care Critical Care patient: No
[2017-09-04 21:09] VITALS: BP 110/61; PULSE 71; TEMP 99
[2017-09-04] MEDS: SENNOSIDES 8.6MG TABLET (FP) PO SCH (21:38)
--- NOTE | 2017-09-05 07:53 | DS ---
Physical Examination Vital Signs: Vital Signs Temperature 99 F 09/04/17 21:00 Pulse Rate 71 09/04/17 21:00 Respiratory Rate 19 09/04/17 21:00 Blood Pressure 110/61 09/04/17 21:00 O2 Sat by Pulse Oximetry (%) 95 09/04/17 21:00 Labs: CBC, BMP 09/02/17 06:00 09/04/17 07:26 Discharge Summary Reason For Visit: SPONDYLOLISTHESIS, LUMBAR REGION Condition: Improved - Instructions Diet, Activity, Other Instructions: Return to ED for new or worsening symptoms. Resume your usual diet. Call Dr. Park's office in the morning to schedule your follow up appointment. Referrals: David Contreras MD [Staff Physician] - Lenny Park MD [Staff Physician] - Disposition: [facility]/HOME HEALTH CARE - Home Medications Comprehensive Discharge Medication List: Ambulatory Orders Ibuprofen [Motrin -] 800 mg PO PRN 08/25/17 Naloxegol Oxalate [Movantik] 25 mg PO DAILY 08/25/17 Diazepam [Valium] 2 mg PO BID #14 tablet MDD 2 09/04/17 Diphenhydramine HCl [Benadryl Capsule -] 25 mg PO Q6H PRN #30 capsule 09/04/17 Docusate Sodium [Colace -] 200 mg PO TID #30 capsule 09/04/17 FENTANYL 75mcg PATCH [DURAGESIC 75mcg PATCH -] 1 patch TD Q72H patch.td72 MDD 1 09/04/17 FENTANYL 75mcg PATCH [DURAGESIC 75mcg PATCH -] 1 patch TD Q72H #5 patch.td72 MDD 1 09/04/17 Nicotine Polacrilex [Nicorelief -] 2 mg BUC Q2H PRN 14 Days gum 09/04/17 Polyethylene Glycol 3350 [Miralax 119 gm Btl -] 17 gm PO DAILY 14 Days bottle 09/04/17 Pregabalin [Lyrica -] 75 mg PO TID #42 capsule MDD 3 09/04/17 oxyCODONE HCL [Roxicodone -] 10 mg PO Q6H PRN #60 tablet MDD 4 09/04/17 - Discharge Referral Referred to [facility] No
== END 2017-09-04 22:30 | disposition home health service (06) | DRG 304 ==
LOC: JSAMEDAYSX 08-28 13:47 → JICU 08-29 01:50 → J6S 08-30 10:45
PROVIDERS: ADMIT Orthopaedic Surgery Orthopaedic Surgery of the Spine; ATTEND Registered Nurse
PROC: 0SG1071 Fusion of 2 or more Lumbar Vertebral Joints with Autologous Tissue Substitute, Posterior Approach, Posterior Column, Open Approach (ICD-10-PCS; 2017-08-28)
PROC: 0SG10AJ Fusion of 2 or more Lumbar Vertebral Joints with Interbody Fusion Device, Posterior Approach, Anterior Column, Open Approach (ICD-10-PCS; 2017-08-28)
PROC: 0QB00ZZ Excision of Lumbar Vertebra, Open Approach (ICD-10-PCS; principal; 2017-08-28 15:00)
DX: M43.06 Spondylolysis, lumbar region (principal); M48.061 Spinal stenosis, lumbar region without neurogenic claudication; Q76.0 Spina bifida occulta; G89.18 Other acute postprocedural pain; Z72.0 Tobacco use; J44.9 Chronic obstructive pulmonary disease, unspecified
CPT/HCPCS: 36415; 76000-TC-FY; 80048; 80053; 81003; 81015; 83735; 84100; 85025; 85027; 86850; 86891; 86900; 86901; 88304-TC; 94640; 94760; 97116-GP; 97161-GP; J0131; J1644; J7620